=== PATIENT | male | born 1940 | race Caucasian/White ===

== ENCOUNTER 2016-09-24 14:58 | Inpatient (IN) | payer MEDICARE, BC ==
[2016-09-24] MEDS ORDERED: Albuterol/Ipratropium Neb 3 ML NEB NEB ONE (15:15)
[2016-09-24] MEDS ORDERED: METHYLPREDNISOLONE 125 MG/2 ML VIAL IV ONE (15:15)
--- NOTE | 2016-09-24 15:17 | EDPRACDOC ---
[id number] Information Source: Reserves Clerk Mode Of Arrival: Ambulance Home Medications: Home Medications Fluticasone/Salmeterol [Advair 500-50 Diskus] 1 puff INH DAILY 11/22/14 Montelukast Sodium [Singulair] 10 mg PO HS 11/22/14 Nebulizer [Erapid Nebulizer] 1 each MC UNK 11/22/14 Tiotropium [Spiriva Handihaler] 1 puff INH DAILY 11/22/14 Albuterol Sulfate [Proair Hfa] 2 puff INH QID PRN 06/19/15 Rivaroxaban [Xarelto] 20 mg PO .QPM 06/19/15 Diltiazem HCl [Cardizem Cd] 120 mg PO DAILY #30 cap 06/21/15 Alprazolam [Xanax] 0.5 mg PO TID PRN 12/27/15 Cholecalciferol (Vitamin D3) [Vitamin D3] 1,000 unit PO DAILY 12/27/15 Docusate Sodium [Stool Softener] 100 mg PO DAILY PRN 12/27/15 Dronedarone Hydrochloride [Multaq] 400 mg PO BID 12/27/15 Omeprazole [Prilosec] 20 mg PO BID 12/27/15 Albuterol/Ipratropium Neb [Duoneb] 3 ml NEB Q6H #120 nebu 01/04/16 Furosemide [Lasix] 40 mg PO BID #120 tab 01/04/16 Guaifenesin [Humabid, Mucinex] 600 mg PO BID #60 tab 01/04/16 Potassium Chloride 20 meq PO DAILY #60 tablet.er 01/04/16 Prednisone [Deltasone, Orasone] 60 mg PO DAILY 09/24/16 Allergies/Adverse Reactions: Allergies Allergy/AdvReac Type Severity Reaction Status Date / Time Penicillins Allergy Intermediate Rash-Genera Verified 09/24/16 16:20 lized - History of Present Illness Onset: FEW DAYS HPI: PT HAS BEEN SOB FOR THE PAST FEW DAYS. THE PT IS UNABLE TO GIVE ANY HX DUE TO THE SEVERE SOB. THE PT CALLED EMS TODAY. EMS PUT PT ON BIPAP EN ROUTE DUE TO THE SEVERE SOB. Shortness of Breath: Severe Relevant History: Reports: COPD Cough: Reports: Non-productive Rhinorrhea: Reports: None Ear Symptoms: Reports: None SOB Worsens with: Reports: Exertion SOB Improves with: Reports: Nothing ED Past Medical History - Patient Medical History Cardiac History: Reports: Atrial Fibrillation, Hypertension, Congestive Heart Failure, Valvular Heart Disease Respiratory History: Reports: COPD, Pneumonia, Pulmonary Embolism GI/ History: Reports: Renal Disease, Gastroesophageal Reflux Musculoskeletal History: Reports: Osteoarthritis Psychological History: Reports: Anxiety. Denies: Substance Use Disorder Surgical History: Reports: Hernia Surgery, Other (hip orif) - Family Medical History Reports: Cancer (lung), Cardiac Disorders - Social Medical History Smoking Status: Never smoker Social History: Denies: Substance Use Disorder ETOH: None Substance Abuse: None Lives In: Home EDM Review of Systems - Review of Systems ROS Negative Except as Marked: Yes All systems reviewed and were negative except as marked Respiratory: Shortness of Breath - Physical Exam Constitutional: Distress Oriented to: Time, Person, Place Last recorded Vital Signs: Oxygen Pulse Oxygen Saturation O2 Device Oxygen Flow Rate Fraction of Inspired Oxygen ( FIO2) - HEENT Head: Normal ( normocephalic) Eye Exam: Normal (PERRL, EOMI, Sclera white) Oropharynx: Normal (Pharynx:Moist without exudate,Gums-no swelling) ENT EAC: Normal TMJ: Normal Nose: No Symptoms Reported (septum midline) Neck: Normal (FROM, trachea at midline) - Respiratory/Cardiovascular Respiratory: Rhonchi, Tachypnea Cardiovascular: Tachycardia, Irregular - GI Auscultation: Normal (NABS) Palpation: Normal (Soft,No rebound or guarding, non distended) Tenderness: Non tender Clarke's Sign: Negative - Musculoskeletal Back: Normal (Non-Tender) Extremities: Normal (Normal tone, Pulses 2+ No cyanosis or edema, FROM) - Integumentary Skin: Normal, Warm, Dry Lymphatics: Normal (no adenopathy) - Neurologic Memory Impaired: Normal Motor Function: Normal (Normal tone, Pulses 2+ No cyanosis or edema, FROM) Cranial Nerve: Normal (CN II-X11 intact sensation, strength 5/5) Cerebellar: Normal Mood Description: Normal Perception: Normal ED SOB MDM - Re-evaluation Re-evaluation 1 Re-evaluation Time: 16:00 (IMPROVED, BUT STILL SOB) - Results Result Diagrams: 09/24/16 15:10 09/24/16 15:10 - EKG EKG #1 EKG Time: 15:06 -: Yes EKG interpreted by me Rate: bpm: [address] [place]: Normal Rhythm: Afib Block: None Hypertrophy: None ST: Normal Comparison: 09/24/16 - Diagnostic Imaging Chest Image interpreted by: Radiologist Diagnostic Imaging Comments: No active disease. ED Critical Care Note - Critical Care Note Total Time (mins): 30 - Departure Yes I personally saw and evaluated the patient. Disposition: Admit IP To This Hospital Condition: Serious Final Diagnosis: Hyperglycemia, Acute respiratory failure with hypoxia, CKD (chronic kidney disease) Atrial fibrillation Qualifiers: Atrial fibrillation type: chronic Qualified Code(s): I48.2 - Chronic atrial fibrillation Education/Counseling Given To: Patient Education/Counseling Given Regarding: Diagnosis, Treatment Decision to Admit Time: 16:02 Decision to admit date: 09/24/16 Decision to admit: from ED - Physician Consulted Hospitalist Provider Called: Garrick Quinones
[2016-09-24 15:28] LABS: MPV 7.6 fL (7.4-10.4)
--- NOTE | 2016-09-24 15:32 | DIRPT ---
CLINICAL DATA: Shortness of breath, COPD EXAM: PORTABLE CHEST 1 VIEW COMPARISON: 01/03/2016 FINDINGS: The lungs are hyperinflated likely secondary to COPD. There is hazy left lower lobe airspace disease similar to the prior exam likely reflecting scarring. There is no pleural effusion or pneumothorax. The heart and mediastinal contours are unremarkable. The osseous structures are unremarkable. IMPRESSION: No active disease. Electronically Signed By: Sia Mcarthur On: 09/24/2016 15:29
[2016-09-24 15:41] LABS: PARTIAL THROMB. TIME 27.1 SEC (22-35); PT-INR 1.4
[2016-09-24 15:42] LABS: BLOOD UREA NITROGEN 29 MG/DL (9-20); CALC CORRECTED 8.9 MG/DL (8.4-10.2); CALCIUM 8.6 MG/DL (8.4-10.2); CALCULATED OSMOLALITY 282 MOs/Kg (270-290); CHLORIDE 92 mEq/L (98-107); GLUCOSE 387 MG/DL (70-99); SODIUM LEVEL 135 mEq/L (137-146); TOTAL PROTEIN 6.7 G/DL (6.3-8.2)
[2016-09-24 15:43] LABS: SEG NEUTROPHIL 87 % (45-76)
[2016-09-24] MEDS ORDERED: Levofloxacin 750 mg/150 ml D5W 750 MG/150 ML RTU IV ONE (15:58)
[2016-09-24] MEDS ORDERED: REGULAR INSULIN 100 UNITS/ML - 3 ML VIAL IV ONE (16:00)
[2016-09-24 16:01] LABS: ALLEN'S TEST PASS; BEb 5.2 (+/- 2); TCO2 33.1 MMOL/L (23-27)
[2016-09-24 16:02] LABS: ABG Draw Site Left Radial
[2016-09-24] MEDS ORDERED: DILTIAZEM 25 MG/5 ML VIAL IV ONE (16:10)
[2016-09-24 16:13] LABS: LEUKOCYTES/URINE NEG (NEGATIVE); NITRITE/URINE NEG (NEGATIVE); RBC/URINE 0-2 (0-2); URINE OCCULT BLOOD NEG (NEG/TRACE)
[2016-09-24] MEDS ORDERED: GLUCAGON 1 MG VIAL SQ PRN (16:43)
[2016-09-24] MEDS ORDERED: Albuterol/Ipratropium Neb 3 ML NEB NEB PRN (16:43)
[2016-09-24] MEDS ORDERED: DEXTROSE 25 GM/50 ML PFS IV PRN (16:43)
[2016-09-24] MEDS ORDERED: GLUCOSE (ORAL GEL) 15 GM TUBE PO PRN (16:43)
[2016-09-24] MEDS ORDERED: Non-Formulary Medication ITEM (Nebulizer [Erapid Nebulizer] 1 EACH) MC SCH (17:00)
--- NOTE | 2016-09-24 17:00 | HISTPHYS ---
- Chief Complaint Shortness of breath cough phlegm production. - History of Present Illness 75 yowm presented to emergency room early on today for evaluation of worsening difficulties breathing. reports that about 10 days ago patient developed chest congestion and cough productive of foamy sputum. Over the ensuing period of time patient breathing has progressively worsened. Patient been coughing producing fair amount of thick yellowish greenish sputum. No hemoptysis. Patient reports chest tightness and profuse wheezing. Despite increasing his oxygen to 4 L and using his nebulizers with increased frequency patient did not sustain any symptomatic improvement. Over past couple days his p.o. intake has been negligent, he has been feel weak tired and very fatigued. Since yesterday his dyspnea has significantly worsened and early on today has found him gasping for air, cold clammy cyanotic and 911 was activated. Upon arrival in ED patient was found to be in severe respiratory distress hypoxic tachypneic and tachycardic. He required immediate ED staff attention, treatment with BiPAP was instituted, intubation was avoided. Medical consultation was phoned in for inpatient treatment. - Medical History Cardiac History: Reports: Coronary Artery Disease, Atrial Fibrillation, Hypertension, Congestive Heart Failure, Heart Attack, Cardiomyopathy, Valvular Heart Disease Respiratory History: Reports: COPD, Pneumonia, Emphysema, Pulmonary Embolism GI/ History: Reports: Renal Disease, Gastroesophageal Reflux, BPH Musculoskeletal History: Reports: Osteoarthritis Systemic History: Reports: No Significant History Neurological History: Reports: No Significant History Psychological History: Reports: Depression, Anxiety. Denies: Substance Use Disorder - Surgical History Reports: Hernia Surgery, Other (hip orif) - Medictions/Allergies Allergies Penicillins Allergy (Intermediate, Verified 09/24/16 16:20) Rash-Generalized Current Medication List: Reviewed Home Medications Fluticasone/Salmeterol [Advair 500-50 Diskus] 1 puff INH DAILY 11/22/14 Montelukast Sodium [Singulair] 10 mg PO HS 11/22/14 Nebulizer [Erapid Nebulizer] 1 each MC UNK 11/22/14 Tiotropium [Spiriva Handihaler] 1 puff INH DAILY 11/22/14 Albuterol Sulfate [Proair Hfa] 2 puff INH QID PRN 06/19/15 Rivaroxaban [Xarelto] 20 mg PO .QPM 10/19/15 Diltiazem HCl [Cardizem Cd] 120 mg PO DAILY #30 cap 06/21/15 Alprazolam [Xanax] 0.5 mg PO TID PRN 12/27/15 Cholecalciferol (Vitamin D3) [Vitamin D3] 1,000 unit PO DAILY 12/27/15 Docusate Sodium [Stool Softener] 100 mg PO DAILY PRN 12/27/15 Dronedarone Hydrochloride [Multaq] 400 mg PO BID 12/27/15 Omeprazole [Prilosec] 20 mg PO BID 12/27/15 Albuterol/Ipratropium Neb [Duoneb] 3 ml NEB Q6H #120 nebu 01/04/16 Furosemide [Lasix] 40 mg PO BID #120 tab 01/04/16 Guaifenesin [Humabid, Mucinex] 600 mg PO BID #60 tab 01/04/16 Potassium Chloride 20 meq PO DAILY #60 tablet.er 01/04/16 Prednisone [Deltasone, Orasone] 60 mg PO DAILY 09/24/16 - Family History Reports: Cancer (lung), Cardiac Disorders, Other (Father due to lung cancer , monitor to heart trouble) - Social History Travel Outside of [place] in the Last 3 Months?: No Lives: With Family Smoking Status: Former smoker Social History: Denies: Substance Use Disorder - Review of Systems Constitutional: Chills, Fever, Diaphoresis, Fatigue, Loss of Appetite, Weakness , Weight loss Eyes: No Symptoms Reported Ears: No Symptoms Reported Nose: No Symptoms Reported Mouth: No Symptoms Reported Throat/Neck: No Symptoms Reported Respiratory: Cough, Shortness of Breath, Wheezing, Sputum, Dyspnea Cardiovascular: Cyanosis, Palpitations Gastrointestinal: Nausea, Constipation, Heartburn Genitourinary: Nocturia Neurological: Dizziness, Numbness, Weakness Musculoskeletal:: Arthritis Integumentary: No Symptoms Reported Allergic/Immunologic: No Symptoms Reported Hematologic: No Symptoms Reported Endocrine: No Symptoms Reported Psychiatric: No Symptoms Reported - Physical Exam Vital Signs: Initial Vitals Temperature 97.5 F 09/24/16 15:00 Pulse Rate 126 H 09/24/16 15:00 Respiratory Rate 28 H 09/24/16 15:00 Blood Pressure 174/91 09/24/16 15:00 Pulse Oxygen Saturation 81 L 09/24/16 15:00 Constitutional: Alert, Distress, Restless, Other (Patient in bed on BiPAP. Still visibly short of breath with audible rhonchi some wheezes.) Oriented to: Person - HEENT Head: Normal Eye: Normal Oropharynx: Normal ENT EAC: Normal TMJ: Normal Nose: No Symptoms Reported Respiratory: Accessory Muscle Use, Diminished, Rales, Retractions, Rhonchi, Tachypnea, Wheezes Cardiovascular: Normal, Tachycardia, Systolic murmur - GI Auscultation: Normal Palpation: Normal Tenderness: Non tender Rectal Exam: Deferred - Exam Deferred: Yes - Musculoskeletal Back: Normal Extremities: Cyanosis, Edema Spine: non-tender - Integumentary Skin: Normal, Warm, Dry Lymphatics: Normal - Neurologic Memory Impaired: Normal Motor Function: Abnormal Cranial Nerve: Normal Cerebellar: Ataxia Mood Description: Anxious Thought: Coherent Perception: Normal - Focused CV Perfusion Exam Vital Signs: Last Vital Signs Temp 97.5 F 09/24/16 15:00 Pulse 100 09/24/16 15:30 Resp 33 H 09/24/16 16:07 BP 143/82 09/24/16 15:30 Pulse Ox 93 09/24/16 16:07 - Diagnostic Findings Allergies Penicillins Allergy (Intermediate, Verified 09/24/16 16:20) Rash-Generalized 09/24/16 15:10 09/24/16 15:10 Abnormal Lab Results 09/24/16 09/24/16 09/24/16 15:10 15:10 15:10 WBC 21.4 H RBC 4.05 L Hgb 12.0 L Hct 36.9 L MCHC 32.6 L RDW 14.8 H Seg Neuts % (Manual) 87 H Band Neutrophils % 9 H Lymphocytes % (Manual) 4 L Absolute Neutrophils 20.54 H PT pCO2 pO2 HCO3 Total CO2 Base Excess Sodium 135 L Chloride 92 L Anion Gap 18 H BUN 29 H Glucose 387 H Lactic Acid 3.7 H Lkj-X-Owaokcqvxll Pept 3770 H Urine Protein Urine WBC Hyaline Casts 09/24/16 09/24/16 09/24/16 15:10 15:55 16:00 WBC RBC Hgb Hct MCHC RDW Seg Neuts % (Manual) Band Neutrophils % Lymphocytes % (Manual) Absolute Neutrophils PT 14.7 H pCO2 52.0 H pO2 133.0 H HCO3 31.5 H Total CO2 33.1 H Base Excess 5.2 H Sodium Chloride Anion Gap BUN Glucose Lactic Acid Ucg-I-Jtnujvzsyab Pept Urine Protein 1+ H Urine WBC 2-5 H Hyaline Casts 10-20 H Last Vital Signs Temp 97.5 F 09/24/16 15:00 Pulse 100 09/24/16 15:30 Resp 33 H 09/24/16 16:07 BP 143/82 09/24/16 15:30 Pulse Ox 93 09/24/16 16:07 Patient Name: JAY WRIGHT LOC: ED : 1940 AGE: 75 Order Date:09/24/16 Date of Service: Report # [id number] Ord Physician: Minnie Lomax MD Exam # [id number] Emergency Physician: Minnie Lomax MD Exam(s): [id number] RAD/DG CHEST PORTABLE CLINICAL DATA: Shortness of breath, COPD EXAM: PORTABLE CHEST 1 VIEW COMPARISON: 01/03/2016 FINDINGS: The lungs are hyperinflated likely secondary to COPD. There is hazy left lower lobe airspace disease similar to the prior exam likely reflecting scarring. There is no pleural effusion or pneumothorax. The heart and mediastinal contours are unremarkable. The osseous structures are unremarkable. IMPRESSION: No active disease. Electronically Signed By: Sia Mcarthur On: 09/24/2016 15:29 Electronically Signed By: Sia Mcarthur MD Electronically Signed Date/Time: [id number] Dictate Date/Time: 09/24/16 1526 - Assessment (1) Acute respiratory failure with hypoxia J96.01 - ACUTE RESPIRATORY FAILURE WITH HYPOXIA Acute Present on Admission: Yes Patient will be admitted to ICU. Continue BiPAP therapy. Patient himself and his were advised that he may require ventilatory support. Monitor pulmonary status closely will obtain PA and lateral chest x-ray and ABG in the morning. (2) Bacterial pneumonia J15.9 - UNSPECIFIED BACTERIAL PNEUMONIA Acute Present on Admission: Yes Patient will receive broad-spectrum antibiotics in the form of Levaquin and Rocephin. Adjust antibiotics based on culture results. (3) Sepsis A41.9 - SEPSIS, UNSPECIFIED ORGANISM Acute Present on Admission: Yes Qualifiers: Sepsis type: sepsis due to unspecified organism Qualified Code(s): A41.9 - Sepsis, unspecified organism Continue IV antibiotics and IV steroids monitor cultures. Monitor hemodynamics in ICU setting. (4) COPD exacerbation J44.1 - CHRONIC OBSTRUCTIVE PULMONARY DISEASE W (ACUTE) EXACERBATION Acute Present on Admission: Yes Continue nebulized bronchodilators and IV steroids. Continue mucolytics and aggressive pulmonary toileting. (5) Cardiomyopathy I42.9 - CARDIOMYOPATHY, UNSPECIFIED Acute Present on Admission: Yes Qualifiers: Cardiomyopathy type: unspecified Qualified Code(s): I42.9 - Cardiomyopathy , unspecified Continue salt restriction, monitor weight and fluid balance. Change Lasix to IV. Monitor BnP (6) Afib I48.91 - UNSPECIFIED ATRIAL FIBRILLATION Chronic Present on Admission: Yes Qualifiers: Atrial fibrillation type: chronic Qualified Code(s): I48.2 - Chronic atrial fibrillation Rate controlled on Cardizem and Multaq. Continue anticoagulation (7) GERD (gastroesophageal reflux disease) K21.9 - GASTRO-ESOPHAGEAL REFLUX DISEASE WITHOUT ESOPHAGITIS Chronic Qualifiers: Esophagitis presence: without esophagitis Qualified Code(s): K21.9 - Gastro -esophageal reflux disease without esophagitis Continue with PPI. (8) HTN (hypertension) I10 - ESSENTIAL (PRIMARY) HYPERTENSION Chronic Present on Admission: Yes Qualifiers: Hypertension type: essential hypertension Qualified Code(s): I10 - Essential (primary) hypertension Continue home meds keep SBP around 140.. (9) Anemia D64.9 - ANEMIA, UNSPECIFIED Acute Qualifiers: Anemia type: unspecified type Iron deficiency anemia type: I Vitamin B12 deficiency anemia type: V Folate deficiency anemia type: F Bone marrow failure anemia type: B Hemolytic anemia type: H Other causes of anemia: O Qualified Code(s): D64.9 - Anemia, unspecified Monitor counts - Plan Clinical situation and treatment plan was discussed in details with patient and his at the bedside. Patient was advised that this appears critically ill, in danger of dying and may required ventilatory support. Case Care Discussed with: Patient, Consultants, Family, Nursing Staff, Respiratory Therapy Total Time: 92 min . Critical Care: Yes Code: 292
[2016-09-24] MEDS ORDERED: MORPHINE 10 MG/ML INJECTION NEB PRN (17:03)
[2016-09-24] MEDS ORDERED: MORPHINE 10 MG/ML INJECTION ONE (17:10)
[2016-09-24] MEDS ORDERED: FLUTICASONE/SALMETEROL 500/50 DISKUS INH SCH (18:00)
[2016-09-24] MEDS: REGULAR INSULIN 100 UNITS/ML - 3 ML VIAL SQ SCH (18:24)
[2016-09-24] MEDS: NS 1,000 ML IV SCH (18:24)
[2016-09-24] MEDS: CEFTRIAXONE 1 GM in D5W 100 ML IV SCH (18:24)
[2016-09-24] MEDS: Albuterol/Ipratropium Neb 3 ML NEB NEB SCH (19:54)
[2016-09-24] MEDS ORDERED: ENOXAPARIN 40 MG/0.4 ML PFS SQ SCH (21:00)
[2016-09-24] MEDS ORDERED: RIVAROXABAN 10 MG TAB PO SCH (21:00)
[2016-09-24] MEDS: LORAZEPAM 2 MG/ML VIAL IV PRN (22:01)
[2016-09-24] MEDS: MORPHINE 2 MG/ML INJECTION IV PRN (22:02)
[2016-09-24] MEDS: CHLORHEXIDINE (HIBICLENS) 4 OZ BOTTLE TOP SCH (22:03)
[2016-09-24] MEDS: DRONEDARONE 400 MG TAB PO SCH (22:04)
[2016-09-24] MEDS: GUAIFENESIN 600 MG LA TAB PO SCH (22:04)
[2016-09-24] MEDS: MONTELUKAST SODIUM 10 MG TAB PO SCH (22:04)
[2016-09-24] MEDS: FUROSEMIDE 40 MG/4 ML VIAL IV SCH (22:05)
[2016-09-24] MEDS: METHYLPREDNISOLONE 125 MG/2 ML VIAL IV SCH (22:05)
[2016-09-25] MEDS ORDERED: Vaccine Screening Complete SCH (01:00)
[2016-09-25] MEDS: REGULAR INSULIN 100 UNITS/ML - 3 ML VIAL SQ SCH ×5 (01:06→23:38)
[2016-09-25] MEDS: Albuterol/Ipratropium Neb 3 ML NEB NEB SCH ×4 (02:31→19:37)
[2016-09-25] MEDS: METHYLPREDNISOLONE 125 MG/2 ML VIAL IV SCH ×4 (04:25→20:44)
[2016-09-25 04:31] LABS: ALLEN'S TEST PASS; BEb 10.9 (+/- 2); TCO2 37.2 MMOL/L (23-27)
[2016-09-25 04:32] LABS: ABG Draw Site Left Radial; ABG Draw Tech BKL
[2016-09-25 04:33] LABS: BI-PAP 14/8 RATE 10 cm H2O
[2016-09-25 05:54] LABS: MPV 7.7 fL (7.4-10.4)
[2016-09-25 06:06] LABS: BLOOD UREA NITROGEN 27 MG/DL (9-20); CALCIUM 8.3 MG/DL (8.4-10.2); CALCULATED OSMOLALITY 271 MOs/Kg (270-290); CHLORIDE 95 mEq/L (98-107); GLUCOSE 136 MG/DL (70-99); SODIUM LEVEL 137 mEq/L (137-146)
[2016-09-25 06:14] LABS: SEG NEUTROPHIL 91 % (45-76)
[2016-09-25] MEDS: FUROSEMIDE 40 MG/4 ML VIAL IV SCH ×3 (06:38→16:07)
[2016-09-25] MEDS: PANTOPRAZOLE 40 MG TAB PO SCH (06:40)
--- NOTE | 2016-09-25 07:44 | DIRPT ---
CLINICAL DATA: Respiratory distress EXAM: PORTABLE CHEST 1 VIEW COMPARISON: Portable chest x-ray of September 24, 2016 FINDINGS: The lungs are mildly hyperinflated. There is persistent subsegmental atelectasis at the left lung base. The heart is normal in size. The pulmonary vascularity is less prominent today. The mediastinum is normal in width. The bony thorax is unremarkable. IMPRESSION: COPD. Minimal left basilar atelectasis or scarring, stable. Decreased prominence of the pulmonary vascularity. When the patient can tolerate the procedure, a PA and lateral chest x-ray would be useful. Electronically Signed By: Colin Kasper M.D. On: 09/25/2016 07:41
--- NOTE | 2016-09-25 08:02 | GENMEDPROG ---
Subjective Note: Patient in bed, responsive follows commands. Required continues BiPAP since admission. Still visibly short of breath with audible wheezes, coughing producing fair amount thick sputum. Patient stays that overall breathing somewhat improved since admission. In negative fluid balance. Notes Reviewed: Yes Events from last night noted and discussed with Clinical Staff Current Medication List: Reviewed Currently: Reports: Cough, Wheezing, CARTWRIGHT, SOB, Sputum, Reflux Sx DVT Prophylaxis: Yes - Physical Examination Vital Signs and I&O: Last Vital Signs Temp 97.4 F L 09/25/16 07:00 Pulse 91 09/25/16 07:00 Resp 22 09/25/16 07:00 BP 138/77 09/25/16 07:00 Pulse Ox 98 09/25/16 07:00 Oxygen Pulse Oxygen Saturation 98 O2 Device BiPAP Oxygen Flow Rate Fraction of Inspired Oxygen ( 40 FIO2) Intake & Output 09/22/16 09/23/16 09/24/16 09/25/16 23:59 23:59 23:59 23:59 Intake Total 101 331 Output Total 250 Balance 101 81 Patient's weight 72.303 kg 72.665 kg General: Alert, Oriented x3, Cooperative, Mild distress HEENT: Normal, PERRLA, EOMI, Anicteric Sclera Neck: Non-tender, Normal Trachea alignment, Limited range of motion, JVD Lymphatics: Normal (no adenopathy) Respiratory: Diminished, Rhonchi, Tachypnea, Wheezes Cardiovascular: Regular rate, Normal S1, Normal S2, Murmurs, Irregular GI: Normal bowel sounds, Soft, Non tender, No hepatospenomegaly, No masses Extremities/Musculoskeletal: Edema, Cyanosis, DJD Skin: Warm,Dry and Intact, No rashes, No breakdown, No significant lesion Neurological: Normal speech, Cranial nerves 3-12 NL Psych/Mental Status: Anxious Lab/DI/Studies Reviewed: Allergies Penicillins Allergy (Intermediate, Verified 09/24/16 16:20) Rash-Generalized Last Vital Signs Temp 97.4 F L 09/25/16 07:00 Pulse 91 09/25/16 07:00 Resp 22 09/25/16 07:00 BP 138/77 09/25/16 07:00 Pulse Ox 97 09/25/16 07:56 09/25/16 05:10 09/25/16 05:10 Abnormal Lab Results 09/24/16 09/24/16 09/24/16 15:10 15:10 15:10 WBC 21.4 H RBC 4.05 L Hgb 12.0 L Hct 36.9 L MCHC 32.6 L RDW 14.8 H Seg Neuts % (Manual) 87 H Band Neutrophils % 9 H Lymphocytes % (Manual) 4 L Absolute Neutrophils 20.54 H Absolute Lymphocytes PT pH pCO2 pO2 HCO3 Total CO2 Base Excess Sodium 135 L Chloride 92 L Anion Gap 18 H BUN 29 H Glucose 387 H POC Capillary Glucose Lactic Acid 3.7 H Calcium Ykk-X-Cedxkqfqrif Pept 3770 H Urine Protein Urine WBC Hyaline Casts 09/24/16 09/24/16 09/24/16 15:10 15:55 16:00 WBC RBC Hgb Hct MCHC RDW Seg Neuts % (Manual) Band Neutrophils % Lymphocytes % (Manual) Absolute Neutrophils Absolute Lymphocytes PT 14.7 H pH pCO2 52.0 H pO2 133.0 H HCO3 31.5 H Total CO2 33.1 H Base Excess 5.2 H Sodium Chloride Anion Gap BUN Glucose POC Capillary Glucose Lactic Acid Calcium Dep-W-Rzzpgzooeiq Pept Urine Protein 1+ H Urine WBC 2-5 H Hyaline Casts 10-20 H 09/24/16 09/24/16 09/24/16 18:15 18:21 21:32 WBC RBC Hgb Hct MCHC RDW Seg Neuts % (Manual) Band Neutrophils % Lymphocytes % (Manual) Absolute Neutrophils Absolute Lymphocytes PT pH pCO2 pO2 HCO3 Total CO2 Base Excess Sodium Chloride Anion Gap BUN Glucose POC Capillary Glucose 162 H 178 H Lactic Acid 3.5 H Calcium Btg-W-Gfhbcfusnug Pept Urine Protein Urine WBC Hyaline Casts 09/25/16 09/25/16 09/25/16 01:02 04:25 05:08 WBC RBC Hgb Hct MCHC RDW Seg Neuts % (Manual) Band Neutrophils % Lymphocytes % (Manual) Absolute Neutrophils Absolute Lymphocytes PT pH 7.490 H pCO2 47.0 H pO2 148.0 H HCO3 35.8 H Total CO2 37.2 H Base Excess 10.9 H Sodium Chloride Anion Gap BUN Glucose POC Capillary Glucose 182 H 143 H Lactic Acid Calcium Icy-V-Rjswlhbvltn Pept Urine Protein Urine WBC Hyaline Casts 09/25/16 09/25/16 05:10 05:10 WBC 11.5 H RBC 3.48 L Hgb 10.4 L D Hct 31.2 L MCHC RDW Seg Neuts % (Manual) 91 H Band Neutrophils % Lymphocytes % (Manual) 5 L Absolute Neutrophils 10.70 H Absolute Lymphocytes 0.58 L PT pH pCO2 pO2 HCO3 Total CO2 Base Excess Sodium Chloride 95 L Anion Gap BUN 27 H Glucose 136 H POC Capillary Glucose Lactic Acid Calcium 8.3 L Jun-T-Ofqivxhikzf Pept Urine Protein Urine WBC Hyaline Casts Patient Name: JAY WRIGHT LOC: ICU : 1940 AGE: 75 Order Date:09/24/16 Date of Service: Report # [id number] Ord Physician: Ulises Okeefe MD Exam # [id number] Emergency Physician: Minnie Lomax MD Exam(s): [id number] RAD/DG CHEST PORTABLE CLINICAL DATA: Respiratory distress EXAM: PORTABLE CHEST 1 VIEW COMPARISON: Portable chest x-ray of September 24, 2016 FINDINGS: The lungs are mildly hyperinflated. There is persistent subsegmental atelectasis at the left lung base. The heart is normal in size. The pulmonary vascularity is less prominent today. The mediastinum is normal in width. The bony thorax is unremarkable. IMPRESSION: COPD. Minimal left basilar atelectasis or scarring, stable. Decreased prominence of the pulmonary vascularity. When the patient can tolerate the procedure, a PA and lateral chest x-ray would be useful. Electronically Signed By: Colin Kasper M.D. On: 09/25/2016 07:41 Electronically Signed By: Colin Kasper MD - Assessment (1) Acute respiratory failure with hypoxia Acute J96.01 - ACUTE RESPIRATORY FAILURE WITH HYPOXIA Comment/Plan: Continue supplemental O2, continue BiPAP therapy. Monitor pulmonary status. (2) Bacterial pneumonia Acute J15.9 - UNSPECIFIED BACTERIAL PNEUMONIA Comment/Plan: Continue IV antibiotics in the form Rocephin Levaquin , await cultures. (3) Sepsis Acute A41.9 - SEPSIS, UNSPECIFIED ORGANISM Qualifiers: Sepsis type: sepsis due to unspecified organism Qualified Code(s): A41.9 - Sepsis, unspecified organism Comment/Plan: Continue IV antibiotics and IV steroids monitor cultures. Monitor hemodynamics in ICU setting. (4) COPD exacerbation Acute J44.1 - CHRONIC OBSTRUCTIVE PULMONARY DISEASE W (ACUTE) EXACERBATION Comment/Plan: Continue nebulized bronchodilators and IV steroids. Continue mucolytics and aggressive pulmonary toileting. Wean off IV steroids gradually (5) Cardiomyopathy Acute I42.9 - CARDIOMYOPATHY, UNSPECIFIED Qualifiers: Cardiomyopathy type: unspecified Qualified Code(s): I42.9 - Cardiomyopathy , unspecified Comment/Plan: Continue salt restriction, monitor weight and fluid balance. Patient responded very well to IV diuretic. (6) Afib Chronic I48.91 - UNSPECIFIED ATRIAL FIBRILLATION Qualifiers: Atrial fibrillation type: chronic Qualified Code(s): I48.2 - Chronic atrial fibrillation Comment/Plan: Rate controlled on Cardizem and Multaq. Continue anticoagulation (7) GERD (gastroesophageal reflux disease) Chronic K21.9 - GASTRO-ESOPHAGEAL REFLUX DISEASE WITHOUT ESOPHAGITIS Qualifiers: Esophagitis presence: without esophagitis Qualified Code(s): K21.9 - Gastro -esophageal reflux disease without esophagitis Comment/Plan: Continue with PPI. (8) HTN (hypertension) Chronic I10 - ESSENTIAL (PRIMARY) HYPERTENSION Qualifiers: Hypertension type: essential hypertension Qualified Code(s): I10 - Essential (primary) hypertension Comment/Plan: Continue home meds keep SBP around 140.. (9) Anemia Acute D64.9 - ANEMIA, UNSPECIFIED Qualifiers: Anemia type: unspecified type Iron deficiency anemia type: I Vitamin B12 deficiency anemia type: V Folate deficiency anemia type: F Bone marrow failure anemia type: B Hemolytic anemia type: H Other causes of anemia: O Qualified Code(s): D64.9 - Anemia, unspecified Comment/Plan: Monitor counts Case Care Discussed with: Patient, Consultants, Family, Nursing Staff, [employer] Developer Education/Counseling Given To: Patient Education/Counseling Given Regarding: Diagnosis, Treatment, Prognosis, Follow Up Total Time: 45 min . Critical Care: Yes Code: 291
[2016-09-25] MEDS: DILTIAZEM HCL 120 MG CAPSULE.CR PO SCH (08:39)
[2016-09-25] MEDS: GUAIFENESIN 600 MG LA TAB PO SCH ×2 (08:39→20:43)
[2016-09-25] MEDS: POTASSIUM CHLORIDE 20 MEQ TAB PO SCH (08:39)
[2016-09-25] MEDS: DRONEDARONE 400 MG TAB PO SCH ×2 (08:39→20:44)
[2016-09-25] MEDS ORDERED: TIOTROPIUM INH SCH (09:00)
[2016-09-25] MEDS ORDERED: MUPIROCIN 2% OINT 22 GM TUBE NAS SCH (09:00)
[2016-09-25] MEDS: FLUTICASONE/SALMETEROL 500/50 DISKUS INH SCH ×2 (09:12→19:42)
--- NOTE | 2016-09-25 10:08 | PCM.PULM ---
Chief Complaint: Respiratory failure acute on Chronic with hypoxia COPD exacerbation Pneumonia Atrial fibrillation GERD Patient in Intensive care unit bed alert and responsive follows commands. Breathing is short has been on BIPAP over night and prn Current complaints: SOB,CARTWRIGHT,cough,wheeze,sputum. No chest pain reported Medication list reviewed:yes Notes reviewed:yes, Events from last night noted and discussed with Clinical Staff GI/DVT prophylaxis:yes - Physical Examination Vital Signs and I&O: Last Vital Signs Temp 97.4 F L 09/25/16 07:00 Pulse 101 09/25/16 08:00 Resp 34 H 09/25/16 09:34 BP 133/86 09/25/16 08:00 Pulse Ox 92 09/25/16 09:34 Oxygen Pulse Oxygen Saturation 92 O2 Device Nasal Cannula Oxygen Flow Rate 3.5 Fraction of Inspired Oxygen ( 40 FIO2) Intake & Output 09/22/16 09/23/16 09/24/16 09/25/16 23:59 23:59 23:59 23:59 Intake Total 101 331 Output Total 250 Balance 101 81 Patient's weight 72.303 kg 72.665 kg General: Alert, Oriented x3, Cooperative, Mild distress, Well appearing, Well nourished, Obese, Weakness, Fatigue Respiratory: Diminished, Rhonchi, Wheezes Cardiovascular: Regular rate, Regular rate and rhythm, Normal S1, No Gallops, Rubs/Murmurs, Normal S2, Good Pedal Pulses GI: Normal bowel sounds, Soft, Non tender, No hepatospenomegaly, No masses Extremities/Musculoskeletal: Normal pulses Skin: Warm,Dry and Intact, No rashes, No breakdown, No significant lesion Neurological: Normal Steady Gait, Normal speech, Cranial nerves 3-12 NL Psych/Mental Status: Appropriate, Anxious Result Diagrams: 09/25/16 05:10 09/25/16 05:10 Labs (last 24 hours): Laboratory Results - last 24 hr 09/24/16 09/24/16 09/24/16 18:15 18:15 18:21 WBC RBC Hgb Hct MCV MCH MCHC RDW Plt Count MPV Neut % (Auto) Lymph % (Auto) [place] % (Auto) Eos % (Auto) Baso % (Auto) Absolute Neuts (auto) Absolute Lymphs (auto) Seg Neuts % (Manual) Band Neutrophils % Lymphocytes % (Manual) Monocytes % (Manual) Absolute Neutrophils Absolute Lymphocytes Platelet Estimate RBC Morphology Puncture Site pH pCO2 pO2 HCO3 Total CO2 Base Excess FiO2 % Mode BiPAP Specimen Drawn By Sodium Potassium Chloride Carbon Dioxide Anion Gap BUN Creatinine Estimated GFR (MDRD) Glucose POC Capillary Glucose 162 H Calculated Osmolality Lactic Acid 3.5 H Calcium Magnesium Troponin I 0.06 09/24/16 09/24/16 09/25/16 21:30 21:32 01:02 WBC RBC Hgb Hct MCV MCH MCHC RDW Plt Count MPV Neut % (Auto) Lymph % (Auto) [place] % (Auto) Eos % (Auto) Baso % (Auto) Absolute Neuts (auto) Absolute Lymphs (auto) Seg Neuts % (Manual) Band Neutrophils % Lymphocytes % (Manual) Monocytes % (Manual) Absolute Neutrophils Absolute Lymphocytes Platelet Estimate RBC Morphology Puncture Site pH pCO2 pO2 HCO3 Total CO2 Base Excess FiO2 % Mode BiPAP Specimen Drawn By Sodium Potassium Chloride Carbon Dioxide Anion Gap BUN Creatinine Estimated GFR (MDRD) Glucose POC Capillary Glucose 178 H 182 H Calculated Osmolality Lactic Acid Calcium Magnesium Troponin I 0.06 09/25/16 09/25/16 09/25/16 04:25 05:08 05:10 WBC RBC Hgb Hct MCV MCH MCHC RDW Plt Count MPV Neut % (Auto) Lymph % (Auto) [place] % (Auto) Eos % (Auto) Baso % (Auto) Absolute Neuts (auto) Absolute Lymphs (auto) Seg Neuts % (Manual) Band Neutrophils % Lymphocytes % (Manual) Monocytes % (Manual) Absolute Neutrophils Absolute Lymphocytes Platelet Estimate RBC Morphology Puncture Site Left radial pH 7.490 H pCO2 47.0 H pO2 148.0 H HCO3 35.8 H Total CO2 37.2 H Base Excess 10.9 H FiO2 % 40 Mode BiPAP 14/8 rate 10 Specimen Drawn By Bkl Sodium 137 Potassium 3.8 Chloride 95 L Carbon Dioxide 33 Anion Gap 13 BUN 27 H Creatinine 0.90 Estimated GFR (MDRD) > 60 Glucose 136 H POC Capillary Glucose 143 H Calculated Osmolality 271 Lactic Acid Calcium 8.3 L Magnesium 2.10 Troponin I 09/25/16 05:10 WBC 11.5 H RBC 3.48 L Hgb 10.4 L D Hct 31.2 L MCV 90 MCH 30.0 MCHC 33.4 RDW 14.5 Plt Count 172 MPV 7.7 Neut % (Auto) Cancelled Lymph % (Auto) Cancelled [place] % (Auto) Cancelled Eos % (Auto) Cancelled Baso % (Auto) Cancelled Absolute Neuts (auto) Cancelled Absolute Lymphs (auto) Cancelled Seg Neuts % (Manual) 91 H Band Neutrophils % 2 Lymphocytes % (Manual) 5 L Monocytes % (Manual) 2 Absolute Neutrophils 10.70 H Absolute Lymphocytes 0.58 L Platelet Estimate Norm RBC Morphology Norm Puncture Site pH pCO2 pO2 HCO3 Total CO2 Base Excess FiO2 % Mode BiPAP Specimen Drawn By Sodium Potassium Chloride Carbon Dioxide Anion Gap BUN Creatinine Estimated GFR (MDRD) Glucose POC Capillary Glucose Calculated Osmolality Lactic Acid Calcium Magnesium Troponin I Lab/DI/Studies Reviewed: EK:G NSR, NO ST or ST wave changes noted Cxray: 1 view COPD. Minimal left basilar atelectasis or scarring, stable. Decreased prominence of the pulmonary vascularity. When the patient can tolerate the procedure, a PA and lateral chest x-ray would be useful. Microbiology 09/24/16 18:05 Nares Nasal Screen MRSA (PCR)(RUDY) - Final POSITIVE for MRSA DNA Medications Diltiazem HCl (Cardizem Cd) 120 mg PO DAILY SHELBI Stop: 10/09/16 08:59 Last Admin: 09/25/16 08:39 Dose: 120 mg Albuterol/Ipratropium (Duoneb) 3 ml NEB Q2H PRN PRN Reason: Wheezing Stop: 10/08/16 16:59 Morphine Sulfate (Morphine Sulfate) 10 mg NEB RTQ8 PRN PRN Reason: Air Hunger Stop: 10/01/16 17:02 Potassium Chloride (Klor-Con M20) 40 meq PO DAILY SHELBI Stop: 10/09/16 08:59 Last Admin: 09/25/16 08:39 Dose: 40 meq Fluticasone/Salmeterol (Advair 500/50) 1 puff INH BID SHELBI Stop: 10/09/16 08:59 Last Admin: 09/25/16 09:12 Dose: 1 puff Sodium Chloride (Normal Saline) 1,000 mls @ 20 mls/hr IV Q48H [facility] Stop: 10/08/16 16:59 Last Admin: 09/24/16 18:24 Dose: Not Given Albuterol/Ipratropium (Duoneb) 3 ml NEB RTQ6 SHELBI Stop: 10/08/16 16:59 Last Admin: 09/25/16 09:11 Dose: 3 ml Alprazolam (Xanax) 0.5 mg PO TID PRN PRN Reason: Anxiety Stop: 10/08/16 16:52 Ceftriaxone Sodium 1 gm/ (Dextrose) 100 mls @ 200 mls/hr IV Q24H [facility] Stop: 10/01/16 17:59 Last Admin: 09/24/16 18:24 Dose: 200 mls/hr Furosemide (Lasix) 40 mg IV LASBID [facility] Stop: 10/09/16 16:59 Last Admin: 09/25/16 08:39 Dose: 40 mg Insulin Human Regular (Humulin R) 0 units SQ Q6 SHELBI PRN Reason: Protocol Stop: 10/08/16 16:59 Last Admin: 09/25/16 06:40 Dose: Not Given Levofloxacin/Dextrose (Levaquin 750 Mg) 750 mg in 150 mls @ 100 mls/hr IV Q24H [facility] Stop: 10/02/16 19:59 Lorazepam (Ativan) 1 mg IV Q4H PRN PRN Reason: Anxiety/Agitation Stop: 10/08/16 21:42 Last Admin: 09/24/16 22:01 Dose: 1 mg Methylprednisolone Sodium Succinate (Solu-Medrol) 80 mg IV Q6H [facility] Stop: 10/08/16 09:59 Last Admin: 09/25/16 08:38 Dose: 80 mg Montelukast Sodium (Singulair) 10 mg PO HS [facility] Stop: 10/08/16 20:59 Last Admin: 09/24/16 22:04 Dose: Not Given Morphine Sulfate (Morphine Sulfate) 3 mg IV Q2H PRN PRN Reason: Pain-NPO/PO Med Not Effective Stop: 10/01/16 16:59 Last Admin: 09/24/16 22:02 Dose: 3 mg Pantoprazole Sodium (Protonix) 40 mg PO 0600 [facility] Stop: 10/08/16 16:59 Last Admin: 09/25/16 06:40 Dose: Not Given Mupirocin (Bactroban) 1 gm IRWIN BID Stop: 09/25/16 09:30 Rivaroxaban (Xarelto) 20 mg PO 1800 [facility] Stop: 10/09/16 17:59 - Assessment/Plan (1) Acute respiratory failure with hypoxia Acute J96.01 - ACUTE RESPIRATORY FAILURE WITH HYPOXIA (2) COPD exacerbation Acute J44.1 - CHRONIC OBSTRUCTIVE PULMONARY DISEASE W (ACUTE) EXACERBATION (3) Sepsis Acute A41.9 - SEPSIS, UNSPECIFIED ORGANISM sepsis due to unspecified organism A41.9 - Sepsis, unspecified organism (4) Afib Chronic I48.91 - UNSPECIFIED ATRIAL FIBRILLATION chronic I48.2 - Chronic atrial fibrillation
[2016-09-25] MEDS: MUPIROCIN 2% OINT 22 GM TUBE NAS SCH ×2 (10:14→20:43)
[2016-09-25 11:15] LABS: LEUKOCYTES/URINE NEG (NEGATIVE); NITRITE/URINE NEG (NEGATIVE); RBC/URINE 0-2 (0-2); URINE OCCULT BLOOD NEG (NEG/TRACE)
[2016-09-25 11:49] LABS: AMORPHOUS 4+
[2016-09-25] MEDS: CHOLECALCIFEROL 1000 UNITS TAB PO SCH (12:15)
--- NOTE | 2016-09-25 17:20 | HIMCONS ---
DATE OF CONSULT: REQUESTING PHYSICIAN: Ulises Okeefe MD REASON FOR CONSULTATION: Respiratory failure. HISTORY OF PRESENT ILLNESS: This patient is a 75-year-old male, well known to me from previous office and hospital visits. The patient has not been feeling well for 10 days prior to his admission with coughing up whitish to yellowish phlegm which slowly got worse, complaining of tightness, wheezing, frequent use of nebulizers. Denies any hemoptysis, hematemesis, hematochezia, or melena. Denies any nausea, vomiting, diarrhea, or constipation. Dyspnea was worsening and eventually 911 was called. The patient was cold and clammy, was hypoxic, tachypneic, and tachycardic. The patient was placed on BiPAP and admitted to the ICU on antibiotics and has been feeling somewhat better; however, still remains on BiPAP. PAST MEDICAL HISTORY: Significant for coronary artery disease, atrial fibrillation, hypertension, congestive heart failure, history of MD, cardiomyopathy, valvular heart disease, history of COPD, history of PE, history of kidney disease with gastroesophageal reflux disease, benign prostatic hyperplasia, history of osteoarthritis, depression, anxiety. SURGICAL HISTORY: Significant for hernia surgery and hip surgery. Open reduction and internal fixation. ALLERGIES: THE PATIENT IS ALLERGIC TO PENICILLIN CAUSING RASH. MEDICATIONS: In the chart were noted. FAMILY HISTORY: Significant family history of having lung cancer and cardiac disorder mostly in his father. SOCIAL HISTORY: The patient has been a smoker in the past. No history of alcohol or drug abuse. Has been quit smoking for a while. REVIEW OF SYSTEMS: Detailed review of systems is negative except for as mentioned in the history of present illness. PHYSICAL EXAMINATION: VITAL SIGNS: Temperature is 98.6 degrees Fahrenheit, pulse is 107, respiratory rate is rate 28, blood pressure 152/75, pulse ox 93%. The patient is on 30% BiPAP, 14/7. CHEST: Diffuse bilateral wheezing with decreased bilateral air entry. HEART: S1, S2. Regular. The patient has systolic murmur. EXTREMITIES: No clubbing, cyanosis, or edema. NEURO: Grossly nonfocal. The patient is moving all extremities. LABORATORY DATA: White count is 11.5, it was 21.4 when the patient came in. Currently, hemoglobin is 10.4, hematocrit is 31.2, platelets 172. PT and INR within normal limits. Blood gas showed a pH of 7.49, pCO2 of 47, pO2 of 148 on 14/04 at a rate of 10, and 40% oxygen. Sodium 137, potassium 3.8, chloride 95, CO2 is 33, BUN is 27, creatinine 0.9, glucose 136. LFTs are within normal limits. ProBNP was 3770. IMAGING REPORTS: Chest x-ray shows possible left basal atelectasis, but no acute pneumonia. IMPRESSION: 1. [id number] respiratory failure. 2. Chronic obstructive pulmonary disease with exacerbation. 3. Congestive heart failure. 4. Sepsis and atrial fibrillation, which is chronic. PLAN: The patient is on nebulizers, Rocephin, and Levaquin, and I would continue the current treatment on this patient. He is on Solu-Medrol 80 mg IV q.6 hours. I would continue that for now and hopefully taper it off starting tomorrow. Continue oxygen. Continue BiPAP. Continue Advair and other supportive care. Continue Singulair on this patient. The patient has positive MRSA and DNA, and therefore we would start him on vancomycin until we have the cultures negative for MRSA. The patient is critically ill and would be kept in ICU. Time spent approximately 90 minutes. Thank you very much for the consultation. I will follow the patient with you. [id number]
[2016-09-25] MEDS: CEFTRIAXONE 1 GM in D5W 100 ML IV SCH (17:48)
[2016-09-25] MEDS: RIVAROXABAN 10 MG TAB PO SCH (17:53)
[2016-09-25] MEDS: Levofloxacin 750 mg/150 ml D5W 750 MG/150 ML RTU IV SCH (20:43)
[2016-09-25] MEDS: CHLORHEXIDINE (HIBICLENS) 4 OZ BOTTLE TOP SCH (20:43)
[2016-09-25] MEDS: MONTELUKAST SODIUM 10 MG TAB PO SCH (20:44)
[2016-09-25] MEDS: ALPRAZOLAM 0.5 MG TAB PO PRN (22:00)
[2016-09-26] MEDS: Albuterol/Ipratropium Neb 3 ML NEB NEB SCH ×4 (02:29→20:36)
[2016-09-26] MEDS: METHYLPREDNISOLONE 125 MG/2 ML VIAL IV SCH ×4 (03:24→20:58)
[2016-09-26 04:34] LABS: ALLEN'S TEST PASS; BEb 10.8 (+/- 2); TCO2 36.5 MMOL/L (23-27)
[2016-09-26 04:36] LABS: ABG Draw Site Left Radial; ABG Draw Tech BKL; BI-PAP 14/8 RATE 10 cm H2O
[2016-09-26] MEDS: PANTOPRAZOLE 40 MG TAB PO SCH (05:09)
[2016-09-26] MEDS: REGULAR INSULIN 100 UNITS/ML - 3 ML VIAL SQ SCH ×3 (05:09→16:59)
[2016-09-26 06:34] LABS: BLOOD UREA NITROGEN 36 MG/DL (9-20); CALCULATED OSMOLALITY 274 MOs/Kg (270-290); CHLORIDE 94 mEq/L (98-107); GLUCOSE 170 MG/DL (70-99); SODIUM LEVEL 136 mEq/L (137-146)
--- NOTE | 2016-09-26 07:34 | DIRPT ---
CLINICAL DATA: Respiratory failure, COPD EXAM: PORTABLE CHEST 1 VIEW COMPARISON: Portable chest x-ray of September 25, 2016 FINDINGS: The lungs are adequately inflated. The interstitial markings are mildly prominent in the mid and lower lung zones in this is more conspicuous today. There is no pleural effusion or alveolar infiltrate. The heart and pulmonary vascularity are normal. The mediastinum is normal in width. The bony thorax exhibits no acute abnormality. IMPRESSION: Slight interval increase in pulmonary interstitial edema since yesterday's study. There is no alveolar pneumonia. Electronically Signed By: Colin Kasper M.D. On: 09/26/2016 07:31
--- NOTE | 2016-09-26 07:55 | GENMEDPROG ---
Subjective Note: Patient in bed responsive follows commands. Still short of breath coughing producing fair amount thick sputum still tight in the chest and wheezy. No hemoptysis. Tolerated BiPAP all night last night. Denies any pains. Notes Reviewed: Yes Events from last night noted and discussed with Clinical Staff Current Medication List: Reviewed Currently: Reports: Cough, Wheezing, CARTWRIGHT, SOB, Sputum, Reflux Sx DVT Prophylaxis: Yes - Physical Examination Vital Signs and I&O: Last Vital Signs Temp 97.7 F 09/26/16 07:00 Pulse 92 09/26/16 07:00 Resp 20 09/26/16 07:00 BP 131/76 09/26/16 07:00 Pulse Ox 96 09/26/16 07:00 Oxygen Pulse Oxygen Saturation 96 O2 Device Nasal Cannula Oxygen Flow Rate 3 Fraction of Inspired Oxygen ( 30 FIO2) Intake & Output 09/23/16 09/24/16 09/25/16 09/26/16 23:59 23:59 23:59 23:59 Intake Total 101 2291 102 Output Total 1050 400 Balance 101 1241 -298 Patient's weight 72.303 kg 72.665 kg 71.696 kg General: Alert, Oriented x3, Cooperative, Mild distress HEENT: Normal, PERRLA, EOMI, Anicteric Sclera Neck: Non-tender, Normal Trachea alignment, Limited range of motion, JVD Lymphatics: Normal (no adenopathy) Respiratory: Diminished, Rhonchi, Tachypnea, Wheezes Cardiovascular: Regular rate, Normal S1, Normal S2, Murmurs, Irregular GI: Normal bowel sounds, Soft, Non tender, No hepatospenomegaly, No masses Extremities/Musculoskeletal: Edema, Cyanosis, DJD Skin: Warm,Dry and Intact, No rashes, No breakdown, No significant lesion Neurological: Normal speech, Cranial nerves 3-12 NL Psych/Mental Status: Anxious Lab/DI/Studies Reviewed: Allergies Penicillins Allergy (Intermediate, Verified 09/24/16 16:20) Rash-Generalized 09/25/16 05:10 09/26/16 05:55 Abnormal Lab Results 09/25/16 09/25/16 09/25/16 08:59 11:10 17:09 pH HCO3 Total CO2 Base Excess Sodium Chloride BUN Glucose POC Capillary Glucose 198 H 236 H Urine Protein 1+ H Urine Ketones 1+ H Urine WBC 2-5 H 09/25/16 09/26/16 09/26/16 23:14 04:28 05:00 pH 7.510 H HCO3 35.1 H Total CO2 36.5 H Base Excess 10.8 H Sodium Chloride BUN Glucose POC Capillary Glucose 232 H 172 H Urine Protein Urine Ketones Urine WBC 09/26/16 05:55 pH HCO3 Total CO2 Base Excess Sodium 136 L Chloride 94 L BUN 36 H Glucose 170 H POC Capillary Glucose Urine Protein Urine Ketones Urine WBC Last Vital Signs Temp 97.7 F 09/26/16 07:00 Pulse 92 09/26/16 07:00 Resp 20 09/26/16 07:00 BP 131/76 09/26/16 07:00 Pulse Ox 96 09/26/16 07:00 Microbiology 09/24/16 18:05 Nares Nasal Screen MRSA (PCR)(RUDY) - Final POSITIVE for MRSA DNA -------- In the absence of signs/symptoms of infection, nasal colonization with MRSA is not an indication of vancomycin therapy. Vancomycin is NOT EFFECTIVE for eradication of MRSA nasal colonization. Patient Name: JAY WRIGHT LOC: ICU : 1940 AGE: 75 Order Date:09/25/16 Date of Service: Report # [id number] Ord Physician: Skyler Monroy MD Exam # [id number] Emergency Physician: Minnie Lomax MD Exam(s): [id number] RAD/DG CHEST PORTABLE CLINICAL DATA: Respiratory failure, COPD EXAM: PORTABLE CHEST 1 VIEW COMPARISON: Portable chest x-ray of September 25, 2016 FINDINGS: The lungs are adequately inflated. The interstitial markings are mildly prominent in the mid and lower lung zones in this is more conspicuous today. There is no pleural effusion or alveolar infiltrate. The heart and pulmonary vascularity are normal. The mediastinum is normal in width. The bony thorax exhibits no acute abnormality. IMPRESSION: Slight interval increase in pulmonary interstitial edema since yesterday's study. There is no alveolar pneumonia. Electronically Signed By: Colin Kasper M.D. On: 09/26/2016 07:31 Electronically Signed By: Colin Kasper MD Electronically Signed Date/Time: [id number] Dictate Date/Time: 09/26/16 0729 Technologist: Dixie Garrido Transcribed - Assessment (1) Acute respiratory failure with hypoxia Acute J96.01 - ACUTE RESPIRATORY FAILURE WITH HYPOXIA Comment/Plan: Very slow progress on maximal pulmonary therapy. Continue O2 nebs and pulmonary toilet. Monitor chest x-ray and ABG. (2) Bacterial pneumonia Acute J15.9 - UNSPECIFIED BACTERIAL PNEUMONIA Comment/Plan: Continue continue broad-spectrum antibiotics in the form of Levaquin Rocephin and vancomycin (3) Sepsis Acute A41.9 - SEPSIS, UNSPECIFIED ORGANISM Qualifiers: Sepsis type: sepsis due to unspecified organism Qualified Code(s): A41.9 - Sepsis, unspecified organism Comment/Plan: Continue IV antibiotics and IV steroids monitor cultures. Monitor hemodynamics in ICU setting. (4) COPD exacerbation Acute J44.1 - CHRONIC OBSTRUCTIVE PULMONARY DISEASE W (ACUTE) EXACERBATION Comment/Plan: Continue nebulized bronchodilators and IV steroids. Continue mucolytics and aggressive pulmonary toileting. Wean off IV steroids gradually (5) Cardiomyopathy Acute I42.9 - CARDIOMYOPATHY, UNSPECIFIED Qualifiers: Cardiomyopathy type: unspecified Qualified Code(s): I42.9 - Cardiomyopathy , unspecified Comment/Plan: Continue salt restriction, monitor weight and fluid balance. Continue IV Lasix (6) Afib Chronic I48.91 - UNSPECIFIED ATRIAL FIBRILLATION Qualifiers: Atrial fibrillation type: chronic Qualified Code(s): I48.2 - Chronic atrial fibrillation Comment/Plan: Rate controlled on Cardizem and Multaq. Continue anticoagulation (7) GERD (gastroesophageal reflux disease) Chronic K21.9 - GASTRO-ESOPHAGEAL REFLUX DISEASE WITHOUT ESOPHAGITIS Qualifiers: Esophagitis presence: without esophagitis Qualified Code(s): K21.9 - Gastro -esophageal reflux disease without esophagitis Comment/Plan: Continue with PPI. (8) HTN (hypertension) Chronic I10 - ESSENTIAL (PRIMARY) HYPERTENSION Qualifiers: Hypertension type: essential hypertension Qualified Code(s): I10 - Essential (primary) hypertension Comment/Plan: Continue home meds keep SBP around 140.. (9) Anemia Acute D64.9 - ANEMIA, UNSPECIFIED Qualifiers: Anemia type: unspecified type Iron deficiency anemia type: I Vitamin B12 deficiency anemia type: V Folate deficiency anemia type: F Bone marrow failure anemia type: B Hemolytic anemia type: H Other causes of anemia: O Qualified Code(s): D64.9 - Anemia, unspecified Comment/Plan: Monitor counts (10) Physical debility Acute R53.81 - OTHER MALAISE Comment/Plan: Increase activity. Out of bed to chair. PTOT to see. Case Care Discussed with: Patient, Consultants, Family, Nursing Staff, Respiratory Therapy, Python Consultant Education/Counseling Given To: Patient Education/Counseling Given Regarding: Diagnosis, Treatment, Prognosis, Follow Up Total Time: 55 min . Critical Care: Yes Code: 291
[2016-09-26] MEDS: MUPIROCIN 2% OINT 22 GM TUBE NAS SCH ×2 (08:22→20:58)
[2016-09-26] MEDS: POTASSIUM CHLORIDE 20 MEQ TAB PO SCH (08:23)
[2016-09-26] MEDS: GUAIFENESIN 600 MG LA TAB PO SCH ×2 (08:23→20:58)
[2016-09-26] MEDS: DILTIAZEM HCL 120 MG CAPSULE.CR PO SCH (08:23)
[2016-09-26] MEDS: DRONEDARONE 400 MG TAB PO SCH ×2 (08:30→20:58)
[2016-09-26] MEDS: FUROSEMIDE 40 MG/4 ML VIAL IV SCH ×2 (08:35→16:56)
[2016-09-26] MEDS: FLUTICASONE/SALMETEROL 500/50 DISKUS INH SCH ×2 (09:14→20:37)
[2016-09-26] MEDS: BUDESONIDE 0.5 MG NEB NEB SCH ×2 (09:21→20:37)
[2016-09-26] MEDS: MORPHINE 2 MG/ML INJECTION IV PRN (10:23)
[2016-09-26] MEDS: ALPRAZOLAM 0.5 MG TAB PO PRN ×2 (11:35→22:34)
[2016-09-26] MEDS: CHOLECALCIFEROL 1000 UNITS TAB PO SCH (11:35)
[2016-09-26] MEDS: PEG-ELECTROLYTE 17 GM PACK PO SCH (12:33)
[2016-09-26] MEDS: CEFTRIAXONE 1 GM in D5W 100 ML IV SCH (17:00)
[2016-09-26] MEDS: RIVAROXABAN 10 MG TAB PO SCH (17:03)
[2016-09-26] MEDS: SENNA CONCENTRATE TAB PO SCH (18:48)
--- NOTE | 2016-09-26 19:18 | PCM.PULM ---
Chief Complaint: Patient has been slightly better however still having phlegm and wheezing and having tightness in his chest - Physical Examination Vital Signs and I&O: Last Vital Signs Temp 97.8 F 09/26/16 14:00 Pulse 138 H 09/26/16 18:07 Resp 22 09/26/16 16:00 BP 142/99 09/26/16 18:07 Pulse Ox 95 09/26/16 18:07 Oxygen Pulse Oxygen Saturation 95 O2 Device Nasal Cannula Oxygen Flow Rate 4 Fraction of Inspired Oxygen ( 30 FIO2) Intake & Output 09/23/16 09/24/16 09/25/16 09/26/16 23:59 23:59 23:59 23:59 Intake Total 101 2291 928 Output Total 1050 651 Balance 101 1241 277 Patient's weight 72.303 kg 72.665 kg 71.696 kg General: Alert, Oriented x3, Cooperative, Mild distress, Well appearing, Well nourished, Obese, Weakness, Fatigue Respiratory: Diminished, Rhonchi, Wheezes Cardiovascular: Regular rate, Regular rate and rhythm, Normal S1, No Gallops, Rubs/Murmurs, Normal S2, Good Pedal Pulses GI: Normal bowel sounds, Soft, Non tender, No hepatospenomegaly, No masses Extremities/Musculoskeletal: Normal pulses Skin: Warm,Dry and Intact, No rashes, No breakdown, No significant lesion Neurological: Normal Steady Gait, Normal speech, Cranial nerves 3-12 NL Psych/Mental Status: Appropriate, Anxious Result Diagrams: 09/25/16 05:10 09/26/16 05:55 Labs (last 24 hours): Laboratory Results - last 24 hr 09/25/16 09/26/16 09/26/16 23:14 04:28 05:00 Puncture Site Left radial pH 7.510 H pCO2 44.0 pO2 89.0 HCO3 35.1 H Total CO2 36.5 H Base Excess 10.8 H FiO2 % 30% Mode BiPAP 14/8 rate 10 Specimen Drawn By Bkl Sodium Potassium Chloride Carbon Dioxide Anion Gap BUN Creatinine Estimated GFR (MDRD) Glucose POC Capillary Glucose 232 H 172 H Calculated Osmolality Calcium Magnesium 09/26/16 09/26/16 09/26/16 05:55 11:08 16:39 Puncture Site pH pCO2 pO2 HCO3 Total CO2 Base Excess FiO2 % Mode BiPAP Specimen Drawn By Sodium 136 L Potassium 4.1 Chloride 94 L Carbon Dioxide 32 Anion Gap 14 BUN 36 H Creatinine 1.10 Estimated GFR (MDRD) > 60 Glucose 170 H POC Capillary Glucose 282 H 243 H Calculated Osmolality 274 Calcium 9.0 Magnesium 2.20 Lab/DI/Studies Reviewed: Chest x-ray Chest x-ray was seen personally patient seems to have some pulmonary edema and hyperinflated lung steen with increased interstitial prominence - Assessment/Plan (1) Acute respiratory failure with hypoxia Acute J96.01 - ACUTE RESPIRATORY FAILURE WITH HYPOXIA Comment/Plan: Patient has been in ICU today has been on BiPAP and continues to have wheezing and tightness in his chest feeling somewhat better has been coughing up some phlegm I would continue the current antibiotics on this patient including Levaquin however would add vancomycin since MRSA DNR has become positive and would repeat the chest x-ray and a blood gas in the morning patient may be able to go out of ICU tomorrow if he improves continue other supportive care and patient may use BiPAP while he is sleeping at night prognosis remains guarded patient is critically ill and would be kept in ICU tonight (2) COPD exacerbation Acute J44.1 - CHRONIC OBSTRUCTIVE PULMONARY DISEASE W (ACUTE) EXACERBATION Comment/Plan: Patient is currently on Solu-Medrol 80 mg IV q.6 hours along with nebulizers DVT and GI prophylaxis and antibiotics continue oxygen as needed to keep the pulse ox above 90% (3) Sepsis Acute A41.9 - SEPSIS, UNSPECIFIED ORGANISM sepsis due to unspecified organism A41.9 - Sepsis, unspecified organism Comment/Plan: Improving slowly would add vancomycin to the current regimen (4) Afib Chronic I48.91 - UNSPECIFIED ATRIAL FIBRILLATION chronic I48.2 - Chronic atrial fibrillation Comment/Plan: Stable at this time I personally saw and evaluated the patient.: Yes Total Face to Face Time: 35 minutes Case Care Discussed with: Patient, Nursing Staff Education/Counseling Given To: Patient Education/Counseling Given Regarding: Diagnosis, Treatment, Prognosis, Follow Up , Disposition Plan
[2016-09-26] MEDS ORDERED: Vancomycin HCl 0 MG in D5W 500 ML IV SCH (20:00)
[2016-09-26] MEDS: NS 1,000 ML IV SCH (20:57)
[2016-09-26] MEDS: Levofloxacin 750 mg/150 ml D5W 750 MG/150 ML RTU IV SCH (20:57)
[2016-09-26] MEDS: CHLORHEXIDINE (HIBICLENS) 4 OZ BOTTLE TOP SCH (20:58)
[2016-09-26] MEDS: MONTELUKAST SODIUM 10 MG TAB PO SCH (20:58)
[2016-09-27] MEDS: NS 1,000 ML IV SCH (00:49)
[2016-09-27] MEDS: REGULAR INSULIN 100 UNITS/ML - 3 ML VIAL SQ SCH ×5 (00:51→23:47)
[2016-09-27] MEDS: Albuterol/Ipratropium Neb 3 ML NEB NEB SCH ×4 (01:54→19:23)
[2016-09-27] MEDS: METHYLPREDNISOLONE 125 MG/2 ML VIAL IV SCH ×3 (03:54→20:32)
[2016-09-27 05:12] LABS: ABG Draw Site Right Radial; ALLEN'S TEST PASS; BEb 6.6 (+/- 2); TCO2 32.7 MMOL/L (23-27)
[2016-09-27 05:13] LABS: BI-PAP 14/8 cm H2O
[2016-09-27] MEDS: PANTOPRAZOLE 40 MG TAB PO SCH (05:29)
[2016-09-27 06:52] LABS: BLOOD UREA NITROGEN 42 MG/DL (9-20); CALCIUM 8.6 MG/DL (8.4-10.2); CALCULATED OSMOLALITY 282 MOs/Kg (270-290); CHLORIDE 94 mEq/L (98-107); GLUCOSE 259 MG/DL (70-99); SODIUM LEVEL 136 mEq/L (137-146)
--- NOTE | 2016-09-27 07:28 | DIRPT ---
CLINICAL DATA: Respiratory failure. EXAM: PORTABLE CHEST 1 VIEW COMPARISON: 09/26/2016. 09/24/2016. 12/28/2015. 06/20/2015. FINDINGS: Mediastinum and hilar structures are normal. Left base stable atelectasis and or scarring. No pleural effusion or pneumothorax. No acute bony abnormality. IMPRESSION: 1. Left base stable atelectasis and/or scarring. 2. Stable cardiomegaly. Electronically Signed By: Thanh Kirkland On: 09/27/2016 07:26
[2016-09-27] MEDS: FUROSEMIDE 40 MG/4 ML VIAL IV SCH (07:46)
[2016-09-27] MEDS: GUAIFENESIN 600 MG LA TAB PO SCH ×2 (08:21→20:33)
[2016-09-27] MEDS: DILTIAZEM HCL 120 MG CAPSULE.CR PO SCH (08:21)
[2016-09-27] MEDS: POTASSIUM CHLORIDE 20 MEQ TAB PO SCH (08:21)
[2016-09-27] MEDS: DRONEDARONE 400 MG TAB PO SCH ×2 (08:21→20:33)
[2016-09-27] MEDS: MUPIROCIN 2% OINT 22 GM TUBE NAS SCH ×2 (08:22→20:31)
--- NOTE | 2016-09-27 08:49 | GENMEDPROG ---
Subjective Note: Patient in bed, responsive follows commands. Overall breathing slightly better patient still profoundly weak and dyspneic with minimal physical exertion. Tolerated BiPAP all night last night. P.o. intake improving. Notes Reviewed: Yes Events from last night noted and discussed with Clinical Staff Current Medication List: Reviewed Currently: Reports: Cough, Wheezing, CARTWRIGHT, SOB, Sputum, Reflux Sx DVT Prophylaxis: Yes - Physical Examination Vital Signs and I&O: Last Vital Signs Temp 97.5 F 09/27/16 07:00 Pulse 81 09/27/16 07:00 Resp 09/26/16 22:55 BP 130/75 09/27/16 07:00 Pulse Ox 100 09/27/16 07:00 Oxygen Pulse Oxygen Saturation 100 O2 Device Nasal Cannula Oxygen Flow Rate 4 Fraction of Inspired Oxygen ( 30 FIO2) Intake & Output 09/24/16 09/25/16 09/26/16 09/27/16 23:59 23:59 23:59 23:59 Intake Total 101 2291 1142 999 Output Total 1050 951 550 Balance 101 1241 191 449 Patient's weight 72.303 kg 72.665 kg 71.696 kg 70.364 kg General: Alert, Oriented x3, Cooperative, Mild distress HEENT: Normal, PERRLA, EOMI, Anicteric Sclera Neck: Non-tender, Normal Trachea alignment, Limited range of motion, JVD Lymphatics: Normal (no adenopathy) Respiratory: Diminished, Rhonchi, Tachypnea, Wheezes Cardiovascular: Regular rate, Normal S1, Normal S2, Murmurs, Irregular GI: Normal bowel sounds, Soft, Non tender, No hepatospenomegaly, No masses Extremities/Musculoskeletal: Edema, Cyanosis, DJD Skin: Warm,Dry and Intact, No rashes, No breakdown, No significant lesion Neurological: Normal speech, Cranial nerves 3-12 NL Psych/Mental Status: Anxious Lab/DI/Studies Reviewed: Allergies Penicillins Allergy (Intermediate, Verified 09/24/16 16:20) Rash-Generalized Last Vital Signs Temp 97.5 F 09/27/16 07:00 Pulse 81 09/27/16 07:00 Resp 09/26/16 22:55 BP 130/75 09/27/16 07:00 Pulse Ox 100 09/27/16 07:00 09/25/16 05:10 09/27/16 06:00 Patient Name: JAY WRIGHT LOC: ICU : 1940 AGE: 75 Order Date:09/26/16 Date of Service: Report # [id number] Ord Physician: Skyler Monroy MD Exam # [id number] Emergency Physician: Minnie Lomax MD Exam(s): [id number] RAD/DG CHEST PORTABLE CLINICAL DATA: Respiratory failure. EXAM: PORTABLE CHEST 1 VIEW COMPARISON: 09/26/2016. 09/24/2016. 12/28/2015. 06/20/2015. FINDINGS: Mediastinum and hilar structures are normal. Left base stable atelectasis and or scarring. No pleural effusion or pneumothorax. No acute bony abnormality. IMPRESSION: 1. Left base stable atelectasis and/or scarring. 2. Stable cardiomegaly. Electronically Signed By: Thanh Kirkland On: 09/27/2016 07:26 Electronically Signed By: Thanh Kirkland MD Electronically Signed Date/Time: [id number] Dictate Date/Time: 09/27/16 0724 Technologist: Josefa Lozano Transcribed - Assessment (1) Acute respiratory failure with hypoxia Acute J96.01 - ACUTE RESPIRATORY FAILURE WITH HYPOXIA Comment/Plan: Very slow clinical improvement on maximal pulmonary therapy. Continue O2 nebs pulmonary toilet continue BiPAP HS. (2) Bacterial pneumonia Acute J15.9 - UNSPECIFIED BACTERIAL PNEUMONIA Comment/Plan: Continue continue broad-spectrum antibiotics in the form of Levaquin Rocephin and vancomycin. Continue aggressive pulmonary toileting and mucolytics (3) Sepsis Acute A41.9 - SEPSIS, UNSPECIFIED ORGANISM Qualifiers: Sepsis type: sepsis due to unspecified organism Qualified Code(s): A41.9 - Sepsis, unspecified organism Comment/Plan: Continue IV antibiotics and IV steroids monitor cultures. Monitor hemodynamics in ICU setting. (4) COPD exacerbation Acute J44.1 - CHRONIC OBSTRUCTIVE PULMONARY DISEASE W (ACUTE) EXACERBATION Comment/Plan: Continue nebulized bronchodilators and IV steroids. Continue mucolytics and aggressive pulmonary toileting. Wean off IV steroids gradually (5) Cardiomyopathy Acute I42.9 - CARDIOMYOPATHY, UNSPECIFIED Qualifiers: Cardiomyopathy type: unspecified Qualified Code(s): I42.9 - Cardiomyopathy , unspecified Comment/Plan: Continue salt restriction, monitor weight and fluid balance. Continue IV Lasix. Seems compensated (6) Afib Chronic I48.91 - UNSPECIFIED ATRIAL FIBRILLATION Qualifiers: Atrial fibrillation type: chronic Qualified Code(s): I48.2 - Chronic atrial fibrillation Comment/Plan: Rate controlled on Cardizem and Multaq. Continue anticoagulation (7) GERD (gastroesophageal reflux disease) Chronic K21.9 - GASTRO-ESOPHAGEAL REFLUX DISEASE WITHOUT ESOPHAGITIS Qualifiers: Esophagitis presence: without esophagitis Qualified Code(s): K21.9 - Gastro -esophageal reflux disease without esophagitis Comment/Plan: Continue with PPI. (8) HTN (hypertension) Chronic I10 - ESSENTIAL (PRIMARY) HYPERTENSION Qualifiers: Hypertension type: essential hypertension Qualified Code(s): I10 - Essential (primary) hypertension Comment/Plan: Continue home meds keep SBP around 140.. (9) Anemia Acute D64.9 - ANEMIA, UNSPECIFIED Qualifiers: Anemia type: unspecified type Iron deficiency anemia type: I Vitamin B12 deficiency anemia type: V Folate deficiency anemia type: F Bone marrow failure anemia type: B Hemolytic anemia type: H Other causes of anemia: O Qualified Code(s): D64.9 - Anemia, unspecified Comment/Plan: Monitor counts (10) Physical debility Acute R53.81 - OTHER MALAISE Comment/Plan: Increase activity. Out of bed to chair. PTOT to see. Case Care Discussed with: Patient, Nursing Staff, Respiratory Therapy, Radiotelephone Technical Operator Education/Counseling Given To: Patient Education/Counseling Given Regarding: Diagnosis, Treatment, Prognosis, Follow Up Total Time: 55 min . Critical Care: No Code: 15282 (12+)
[2016-09-27] MEDS: FLUTICASONE/SALMETEROL 500/50 DISKUS INH SCH ×2 (09:30→19:28)
--- NOTE | 2016-09-27 09:53 | PCM.PULM ---
Chief Complaint: Uneventful overnight with no acute distress Patient in Intensive care unit bed alert and responsive Breathing is fair. Use BIPAP at night Current medication list reviewed:yes Notes reviewed:yes,Events from last night noted and discussed with Clinical Staff DVT/GI prophylaxis:yes - Physical Examination Vital Signs and I&O: Last Vital Signs Temp 97.5 F 09/27/16 07:00 Pulse 81 09/27/16 07:00 Resp 21 09/26/16 22:55 BP 130/75 09/27/16 07:00 Pulse Ox 96 09/27/16 08:00 Oxygen Pulse Oxygen Saturation 96 O2 Device Nasal Cannula Oxygen Flow Rate 4 Fraction of Inspired Oxygen ( 30 FIO2) Intake & Output 09/24/16 09/25/16 09/26/16 09/27/16 23:59 23:59 23:59 23:59 Intake Total 101 2291 1142 999 Output Total 1050 951 900 Balance 101 1241 191 99 Patient's weight 72.303 kg 72.665 kg 71.696 kg 70.364 kg General: Alert, Oriented x3, Cooperative, No acute distress, Obese, Weakness, Fatigue Respiratory: Diminished, Rhonchi, Wheezes Cardiovascular: Regular rate, Regular rate and rhythm, Normal S1, No Gallops, Rubs/Murmurs, Normal S2 GI: Normal bowel sounds, Soft, Non tender, No hepatospenomegaly, No masses, Obese Extremities/Musculoskeletal: Normal pulses Skin: Warm,Dry and Intact, No rashes, No breakdown, No significant lesion Neurological: Normal Steady Gait, Normal speech, Normal tone, Cranial nerves 3- 12 NL Psych/Mental Status: Normal Affect, Anxious Result Diagrams: 09/25/16 05:10 09/27/16 06:00 Labs (last 24 hours): Laboratory Results - last 24 hr 09/26/16 09/26/16 09/27/16 11:08 16:39 00:50 Puncture Site pH pCO2 pO2 HCO3 Total CO2 Base Excess FiO2 % Mode BiPAP Specimen Drawn By Sodium Potassium Chloride Carbon Dioxide Anion Gap BUN Creatinine Estimated GFR (MDRD) Glucose POC Capillary Glucose 282 H 243 H 243 H Calculated Osmolality Calcium 09/27/16 09/27/16 09/27/16 05:06 05:07 06:00 Puncture Site Right radial pH 7.460 H pCO2 44.0 pO2 87.0 HCO3 31.3 H Total CO2 32.7 H Base Excess 6.6 H FiO2 % .30 Mode BiPAP 14/8 Specimen Drawn By Robcha Sodium 136 L Potassium 4.2 Chloride 94 L Carbon Dioxide 33 Anion Gap 13 BUN 42 H Creatinine 1.30 H Estimated GFR (MDRD) 54 L Glucose 259 H POC Capillary Glucose 278 H Calculated Osmolality 282 Calcium 8.6 Lab/DI/Studies Reviewed: EKG: NSR, NO ST or ST wave changes noted Cxray: 1 view 1. Left base stable atelectasis and/or scarring. 2. Stable cardiomegaly Medications Diltiazem HCl (Cardizem Cd) 120 mg PO DAILY [facility] Stop: 10/09/16 08:59 Last Admin: 09/25/16 08:39 Dose: 120 mg Albuterol/Ipratropium (Duoneb) 3 ml NEB Q2H PRN PRN Reason: Wheezing Stop: 10/08/16 16:59 Morphine Sulfate (Morphine Sulfate) 10 mg NEB RTQ8 PRN PRN Reason: Air Hunger Stop: 10/01/16 17:02 Potassium Chloride (Klor-Con M20) 40 meq PO DAILY [facility] Stop: 10/09/16 08:59 Last Admin: 09/25/16 08:39 Dose: 40 meq Fluticasone/Salmeterol (Advair 500/50) 1 puff INH BID [facility] Stop: 10/09/16 08:59 Last Admin: 09/25/16 09:12 Dose: 1 puff Albuterol/Ipratropium (Duoneb) 3 ml NEB RTQ6 [facility] Stop: 10/08/16 16:59 Last Admin: 09/25/16 09:11 Dose: 3 ml Alprazolam (Xanax) 0.5 mg PO TID PRN PRN Reason: Anxiety Stop: 10/08/16 16:52 Ceftriaxone Sodium 1 gm/ (Dextrose) 100 mls @ 200 mls/hr IV Q24H [facility] Stop: 10/01/16 17:59 Last Admin: 09/24/16 18:24 Dose: 200 mls/hr Dronedarone (Multaq) 400 mg PO BID [facility] Stop: 10/08/16 20:59 Last Admin: 09/25/16 08:39 Dose: 400 mg Guaifenesin (Mucinex) 1,200 mg PO BID [facility] Stop: 10/08/16 20:59 Last Admin: 09/25/16 08:39 Dose: 1,200 mg Insulin Human Regular (Humulin R) 0 units SQ Q6 SHE[facility] PRN Reason: Protocol Stop: 10/08/16 16:59 Last Admin: 09/25/16 06:40 Dose: Not Given Levofloxacin/Dextrose (Levaquin 750 Mg) 750 mg in 150 mls @ 100 mls/hr IV Q24H [facility] Stop: 10/02/16 19:59 Lorazepam (Ativan) 1 mg IV Q4H PRN PRN Reason: Anxiety/Agitation Stop: 10/08/16 21:42 Last Admin: 09/24/16 22:01 Dose: 1 mg Montelukast Sodium (Singulair) 10 mg PO HS [facility] Stop: 10/08/16 20:59 Last Admin: 09/24/16 22:04 Dose: Not Given Morphine Sulfate (Morphine Sulfate) 3 mg IV Q2H PRN PRN Reason: Pain-NPO/PO Med Not Effective Stop: 10/01/16 16:59 Last Admin: 09/24/16 22:02 Dose: 3 mg Pantoprazole Sodium (Protonix) 40 mg PO 0600 [facility] Stop: 10/08/16 16:59 Last Admin: 09/25/16 06:40 Dose: Not Given Mupirocin (Bactroban) 1 gm IRWIN BID Stop: 09/25/16 09:30 Rivaroxaban (Xarelto) 20 mg PO 1800 [facility] Stop: 10/09/16 17:59 Methylprednisolone Sodium Succinate (Solu-Medrol) 60 mg IV Q8H [facility] Stop: 10/11/16 11:59 Furosemide (Lasix) 40 mg IV DAILY [facility] Stop: 10/12/16 08:59 Linezolid (Zyvox 600 Mg/300 Ml Premix) 600 mg in 300 mls @ 150 mls/hr IV Q12H [facility] Stop: 09/30/16 11:59 - Assessment/Plan (1) Acute respiratory failure with hypoxia Acute J96.01 - ACUTE RESPIRATORY FAILURE WITH HYPOXIA Comment/Plan: Patient's shows no significant improvement as compared to yesterday still has chest congestion with wheezing and tightness and weakness continues to have some phlegm I would continue the antibiotics patient is on Levaquin and change vancomycin to linezolid as patient has rising creatinine his MRSA 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 (2) COPD exacerbation Acute J44.1 - CHRONIC OBSTRUCTIVE PULMONARY DISEASE W (ACUTE) EXACERBATION Comment/Plan: Patient is currently on Solu-Medrol 80 mg IV q.6 hours along with nebulizers DVT and GI prophylaxis and antibiotics continue oxygen as needed to keep the pulse ox above 90% (3) Sepsis Acute A41.9 - SEPSIS, UNSPECIFIED ORGANISM sepsis due to unspecified organism A41.9 - Sepsis, unspecified organism Comment/Plan: Improving slowly would add vancomycin to the current regimen (4) Afib Chronic I48.91 - UNSPECIFIED ATRIAL FIBRILLATION chronic I48.2 - Chronic atrial fibrillation Comment/Plan: Stable at this time
[2016-09-27] MEDS: Linezolid 600 mg/300 ml Premix 600 MG/300 ML RTU IV SCH ×2 (12:04→23:43)
[2016-09-27] MEDS: CHOLECALCIFEROL 1000 UNITS TAB PO SCH (12:05)
[2016-09-27] MEDS: RIVAROXABAN 10 MG TAB PO SCH (17:43)
[2016-09-27] MEDS: CEFTRIAXONE 1 GM in D5W 100 ML IV SCH (17:43)
[2016-09-27] MEDS: Levofloxacin 750 mg/150 ml D5W 750 MG/150 ML RTU IV SCH (20:31)
[2016-09-27] MEDS: PEG-ELECTROLYTE 17 GM PACK PO SCH (20:33)
[2016-09-27] MEDS: CHLORHEXIDINE (HIBICLENS) 4 OZ BOTTLE TOP SCH (20:33)
[2016-09-27] MEDS: MONTELUKAST SODIUM 10 MG TAB PO SCH (20:33)
[2016-09-27] MEDS: SENNA CONCENTRATE TAB PO SCH (20:33)
[2016-09-27] MEDS: ALPRAZOLAM 0.5 MG TAB PO PRN (22:17)
[2016-09-28] MEDS: Albuterol/Ipratropium Neb 3 ML NEB NEB SCH ×4 (01:12→19:21)
[2016-09-28 03:34] LABS: AUTOMATED BASOPHIL 0.1 % (0-2); AUTOMATED LYMPH 2.1 % (17-44); AUTOMATED MONOCYTE 5.6 % (3-10); AUTOMATED NEUTROPHIL 92.2 % (45-76); MPV 7.8 fL (7.4-10.4)
[2016-09-28 03:43] LABS: BLOOD UREA NITROGEN 42 MG/DL (9-20); CALCIUM 8.6 MG/DL (8.4-10.2); CALCULATED OSMOLALITY 280 MOs/Kg (270-290); CHLORIDE 95 mEq/L (98-107); GLUCOSE 253 MG/DL (70-99); SODIUM LEVEL 135 mEq/L (137-146)
[2016-09-28] MEDS: METHYLPREDNISOLONE 125 MG/2 ML VIAL IV SCH ×3 (05:28→20:41)
[2016-09-28] MEDS: PANTOPRAZOLE 40 MG TAB PO SCH (05:29)
[2016-09-28] MEDS: REGULAR INSULIN 100 UNITS/ML - 3 ML VIAL SQ SCH ×4 (05:29→20:42)
[2016-09-28] MEDS: FLUTICASONE/SALMETEROL 500/50 DISKUS INH SCH ×2 (07:31→19:30)
[2016-09-28] MEDS: DILTIAZEM HCL 120 MG CAPSULE.CR PO SCH (08:07)
[2016-09-28] MEDS: GUAIFENESIN 600 MG LA TAB PO SCH ×2 (08:07→20:42)
[2016-09-28] MEDS: POTASSIUM CHLORIDE 20 MEQ TAB PO SCH (08:07)
[2016-09-28] MEDS: DRONEDARONE 400 MG TAB PO SCH ×2 (08:08→20:42)
[2016-09-28] MEDS: MUPIROCIN 2% OINT 22 GM TUBE NAS SCH ×2 (08:08→20:43)
[2016-09-28] MEDS ORDERED: FUROSEMIDE 40 MG/4 ML VIAL IV SCH (09:00)
--- NOTE | 2016-09-28 09:41 | PCM.PULM ---
Chief Complaint: Patient in regular bed alert and responsive. Breathing is still very short of breath with little exertion, wheeze and cough. Denies chest pain. He wears BIPAP at night. Current medication list and notes reviewed:yes, Events from last night noted and discussed with Clinical Staff - Physical Examination Vital Signs and I&O: Last Vital Signs Temp 98 F 09/28/16 07:39 Pulse 104 09/28/16 07:39 Resp 22 09/28/16 07:39 BP 173/90 09/28/16 07:39 Pulse Ox 98 09/28/16 07:39 Oxygen Pulse Oxygen Saturation 98 O2 Device Nasal Cannula Oxygen Flow Rate 4.5 Fraction of Inspired Oxygen ( 30 FIO2) Intake & Output 09/25/16 09/26/16 09/27/16 09/28/16 23:59 23:59 23:59 23:59 Intake Total 2291 1142 2165 1267 Output Total 1293 713 9346 400 Balance 1241 191 15 867 Patient's weight 72.665 kg 71.696 kg 70.364 kg 70.392 kg General: Alert, Oriented x3, No acute distress, Well appearing, Obese, Fatigue Respiratory: Diminished (bilaterally), Wheezes Cardiovascular: Normal S1, No Gallops,Rubs/Murmurs, Normal S2, Irregular GI: Normal bowel sounds, Soft, Non tender, No hepatospenomegaly Extremities/Musculoskeletal: Normal pulses Skin: Warm,Dry and Intact, No rashes, No significant lesion Neurological: Normal Steady Gait, Normal speech, Strength at 5/5 X4 ext, Cranial nerves 3-12 NL Psych/Mental Status: Appropriate, Cooperative, Anxious Result Diagrams: 09/28/16 03:00 09/28/16 03:00 Labs (last 24 hours): Laboratory Results - last 24 hr 09/28/16 09/28/16 09/28/16 03:00 03:00 05:22 WBC 9.4 RBC 3.38 L Hgb 10.2 L Hct 30.6 L MCV 91 MCH 30.2 MCHC 33.4 RDW 14.6 H Plt Count 173 MPV 7.8 Neut % (Auto) 92.2 H Lymph % (Auto) 2.1 L Cannon % (Auto) 5.6 Eos % (Auto) 0.0 Baso % (Auto) 0.1 Absolute Neuts (auto) 8.65 H Absolute Lymphs (auto) 0.19 L Platelet Estimate Norm RBC Morphology Norm Sodium 135 L Potassium 4.2 Chloride 95 L Carbon Dioxide 33 Anion Gap 11 BUN 42 H Creatinine 1.20 Estimated GFR (MDRD) 59 L Glucose 253 H POC Capillary Glucose 251 H Calculated Osmolality 280 Calcium 8.6 Magnesium 2.30 Lab/DI/Studies Reviewed: EKG: NSR, NO ST or ST wave changes noted Medications Diltiazem HCl (Cardizem Cd) 120 mg PO DAILY [facility] Stop: 10/09/16 08:59 Last Admin: 09/25/16 08:39 Dose: 120 mg Albuterol/Ipratropium (Duoneb) 3 ml NEB Q2H PRN PRN Reason: Wheezing Stop: 10/08/16 16:59 Morphine Sulfate (Morphine Sulfate) 10 mg NEB RTQ8 PRN PRN Reason: Air Hunger Stop: 10/01/16 17:02 Potassium Chloride (Klor-Con M20) 40 meq PO DAILY [facility] Stop: 10/09/16 08:59 Last Admin: 09/25/16 08:39 Dose: 40 meq Fluticasone/Salmeterol (Advair 500/50) 1 puff INH BID [facility] Stop: 10/09/16 08:59 Last Admin: 09/25/16 09:12 Dose: 1 puff Sodium Chloride (Normal Saline) 1,000 mls @ 20 mls/hr IV Q48H [facility] Stop: 10/08/16 16:59 Last Admin: 09/24/16 18:24 Dose: Not Given Albuterol/Ipratropium (Duoneb) 3 ml NEB RTQ6 [facility] Stop: 10/08/16 16:59 Last Admin: 09/25/16 09:11 Dose: 3 ml Alprazolam (Xanax) 0.5 mg PO TID PRN PRN Reason: Anxiety Stop: 10/08/16 16:52 Ceftriaxone Sodium 1 gm/ (Dextrose) 100 mls @ 200 mls/hr IV Q24H [facility] Stop: 10/01/16 17:59 Last Admin: 09/24/16 18:24 Dose: 200 mls/hr Dronedarone (Multaq) 400 mg PO BID [facility] Stop: 10/08/16 20:59 Last Admin: 09/25/16 08:39 Dose: 400 mg Guaifenesin (Mucinex) 1,200 mg PO BID [facility] Stop: 10/08/16 20:59 Last Admin: 09/25/16 08:39 Dose: 1,200 mg Insulin Human Regular (Humulin R) 0 units SQ Q6 [facility] PRN Reason: Protocol Stop: 10/08/16 16:59 Last Admin: 09/25/16 06:40 Dose: Not Given Levofloxacin/Dextrose (Levaquin 750 Mg) 750 mg in 150 mls @ 100 mls/hr IV Q24H [facility] Stop: 10/02/16 19:59 Lorazepam (Ativan) 1 mg IV Q4H PRN PRN Reason: Anxiety/Agitation Stop: 10/08/16 21:42 Last Admin: 09/24/16 22:01 Dose: 1 mg Montelukast Sodium (Singulair) 10 mg PO HS [facility] Stop: 10/08/16 20:59 Last Admin: 09/24/16 22:04 Dose: Not Given Morphine Sulfate (Morphine Sulfate) 3 mg IV Q2H PRN PRN Reason: Pain-NPO/PO Med Not Effective Stop: 10/01/16 16:59 Last Admin: 09/24/16 22:02 Dose: 3 mg Pantoprazole Sodium (Protonix) 40 mg PO 0600 [facility] Stop: 10/08/16 16:59 Last Admin: 09/25/16 06:40 Dose: Not Given Mupirocin (Bactroban) 1 gm IRWIN BID Stop: 09/25/16 09:30 Rivaroxaban (Xarelto) 20 mg PO 1800 [facility] Stop: 10/09/16 17:59 Methylprednisolone Sodium Succinate (Solu-Medrol) 60 mg IV Q8H [facility] Stop: 10/11/16 11:59 Furosemide (Lasix) 40 mg IV DAILY [facility] Stop: 10/12/16 08:59 Linezolid (Zyvox 600 Mg/300 Ml Premix) 600 mg in 300 mls @ 150 mls/hr IV Q12H [facility] Stop: 09/30/16 11:59 - Assessment/Plan (1) Acute respiratory failure with hypoxia Acute J96.01 - ACUTE RESPIRATORY FAILURE WITH HYPOXIA Comment/Plan: Patient continues to stay on antibiotics including linezolid Levaquin and Rocephin treated he is improving very slowly I would continue the supportive care on this patient for now and would repeat a chest x-ray and a blood gas in the morning patient has been coughing up some phlegm. Long-term prognosis is guarded however I think that patient is most likely going to improve within the next few days (2) COPD exacerbation Acute J44.1 - CHRONIC OBSTRUCTIVE PULMONARY DISEASE W (ACUTE) EXACERBATION Comment/Plan: Continue steroids DVT and GI prophylaxis nebulizers and oxygen I would cut down the Solu-Medrol to 60 mg IV q.6 hours use BiPAP as needed and keep the pulse ox between 88 and 92% (3) Sepsis Acute A41.9 - SEPSIS, UNSPECIFIED ORGANISM sepsis due to unspecified organism A41.9 - Sepsis, unspecified organism Comment/Plan: I would continue linezolid at this time and would follow the patient closely along with Levaquin and Rocephin (4) Afib Chronic I48.91 - UNSPECIFIED ATRIAL FIBRILLATION chronic I48.2 - Chronic atrial fibrillation Comment/Plan: Stable at this time
--- NOTE | 2016-09-28 11:02 | GENMEDPROG ---
Subjective Note: Patient in bed responsive follows commands. Still short of breath coughing producing small amount of sputum. Still dyspneic with minimal physical exertion. No hemoptysis. P.o. intake poor. Notes Reviewed: Yes Events from last night noted and discussed with Clinical Staff Current Medication List: Reviewed Currently: Reports: Cough, Wheezing, CARTWRIGHT, SOB, Sputum, Reflux Sx DVT Prophylaxis: Yes - Physical Examination Vital Signs and I&O: Last Vital Signs Temp 98 F 09/28/16 07:39 Pulse 104 09/28/16 10:15 Resp 22 09/28/16 07:39 BP 173/90 09/28/16 07:39 Pulse Ox 98 09/28/16 07:39 Oxygen Pulse Oxygen Saturation 98 O2 Device Nasal Cannula Oxygen Flow Rate 4.5 Fraction of Inspired Oxygen ( 30 FIO2) Intake & Output 09/25/16 09/26/16 09/27/16 09/28/16 23:59 23:59 23:59 23:59 Intake Total 2291 1142 2165 1267 Output Total 9679 573 9573 400 Balance 1241 191 15 867 Patient's weight 72.665 kg 71.696 kg 70.364 kg 70.392 kg General: Alert, Oriented x3, Cooperative, Mild distress HEENT: Normal, PERRLA, EOMI, Anicteric Sclera Neck: Non-tender, Normal Trachea alignment, Limited range of motion, JVD Lymphatics: Normal (no adenopathy) Respiratory: Diminished, Rhonchi, Wheezes Cardiovascular: Regular rate, Normal S1, Normal S2, Murmurs, Irregular GI: Normal bowel sounds, Soft, Non tender, No hepatospenomegaly, No masses Extremities/Musculoskeletal: Edema, Cyanosis, DJD Skin: Warm,Dry and Intact, No rashes, No breakdown, No significant lesion Neurological: Normal speech, Cranial nerves 3-12 NL Psych/Mental Status: Anxious Lab/DI/Studies Reviewed: Allergies Penicillins Allergy (Intermediate, Verified 09/24/16 16:20) Rash-Generalized 09/28/16 03:00 09/28/16 03:00 Abnormal Lab Results 09/27/16 09/27/16 09/27/16 11:59 17:12 23:05 RBC Hgb Hct RDW Neut % (Auto) Lymph % (Auto) Absolute Neuts (auto) Absolute Lymphs (auto) Sodium Chloride BUN Estimated GFR (MDRD) Glucose POC Capillary Glucose 236 H 267 H 270 H 09/28/16 09/28/16 09/28/16 03:00 03:00 05:22 RBC 3.38 L Hgb 10.2 L Hct 30.6 L RDW 14.6 H Neut % (Auto) 92.2 H Lymph % (Auto) 2.1 L Absolute Neuts (auto) 8.65 H Absolute Lymphs (auto) 0.19 L Sodium 135 L Chloride 95 L BUN 42 H Estimated GFR (MDRD) 59 L Glucose 253 H POC Capillary Glucose 251 H Last Vital Signs Temp 98 F 09/28/16 07:39 Pulse 104 09/28/16 10:15 Resp 22 09/28/16 07:39 BP 173/90 09/28/16 07:39 Pulse Ox 98 09/28/16 07:39 - Assessment (1) Acute respiratory failure with hypoxia Acute J96.01 - ACUTE RESPIRATORY FAILURE WITH HYPOXIA Comment/Plan: Very slow clinical improvement on maximal pulmonary therapy. Continue O2 nebs pulmonary toilet continue BiPAP HS. (2) Bacterial pneumonia Acute J15.9 - UNSPECIFIED BACTERIAL PNEUMONIA Comment/Plan: Continue continue broad-spectrum antibiotics in the form of Levaquin Rocephin and Zyvox. Continue aggressive pulmonary toileting and mucolytics (3) Sepsis Acute A41.9 - SEPSIS, UNSPECIFIED ORGANISM Qualifiers: Sepsis type: sepsis due to unspecified organism Qualified Code(s): A41.9 - Sepsis, unspecified organism Comment/Plan: Continue IV antibiotics and IV steroids monitor cultures. Hemodynamically stable. (4) COPD exacerbation Acute J44.1 - CHRONIC OBSTRUCTIVE PULMONARY DISEASE W (ACUTE) EXACERBATION Comment/Plan: Continue nebulized bronchodilators and IV steroids. Continue mucolytics and aggressive pulmonary toileting. Wean off IV steroids gradually (5) Cardiomyopathy Acute I42.9 - CARDIOMYOPATHY, UNSPECIFIED Qualifiers: Cardiomyopathy type: unspecified Qualified Code(s): I42.9 - Cardiomyopathy , unspecified Comment/Plan: Continue salt restriction, monitor weight and fluid balance. Continue IV Lasix. Seems compensated (6) Afib Chronic I48.91 - UNSPECIFIED ATRIAL FIBRILLATION Qualifiers: Atrial fibrillation type: chronic Qualified Code(s): I48.2 - Chronic atrial fibrillation Comment/Plan: Rate controlled on Cardizem and Multaq. Continue anticoagulation. Keep K more than 4 magnesium more than 2 (7) GERD (gastroesophageal reflux disease) Chronic K21.9 - GASTRO-ESOPHAGEAL REFLUX DISEASE WITHOUT ESOPHAGITIS Qualifiers: Esophagitis presence: without esophagitis Qualified Code(s): K21.9 - Gastro -esophageal reflux disease without esophagitis Comment/Plan: Continue with PPI. (8) HTN (hypertension) Chronic I10 - ESSENTIAL (PRIMARY) HYPERTENSION Qualifiers: Hypertension type: essential hypertension Qualified Code(s): I10 - Essential (primary) hypertension Comment/Plan: Continue home meds keep SBP around 140.. (9) Anemia Acute D64.9 - ANEMIA, UNSPECIFIED Qualifiers: Anemia type: unspecified type Iron deficiency anemia type: I Vitamin B12 deficiency anemia type: V Folate deficiency anemia type: F Bone marrow failure anemia type: B Hemolytic anemia type: H Other causes of anemia: O Qualified Code(s): D64.9 - Anemia, unspecified Comment/Plan: Monitor counts (10) Physical debility Acute R53.81 - OTHER MALAISE Comment/Plan: Increase activity. Out of bed to chair. PTOT to see. Case Care Discussed with: Patient, Consultants, Nursing Staff, Sticker Operator Education/Counseling Given To: Patient Education/Counseling Given Regarding: Diagnosis, Treatment, Prognosis, Follow Up Total Time: 50 min . Critical Care: No Code: 77835 (12+)
[2016-09-28] MEDS: CHOLECALCIFEROL 1000 UNITS TAB PO SCH (11:59)
[2016-09-28] MEDS ORDERED: FUROSEMIDE 40 MG/4 ML VIAL IV ONE (12:00)
[2016-09-28] MEDS: Linezolid 600 mg/300 ml Premix 600 MG/300 ML RTU IV SCH (12:06)
[2016-09-28] MEDS: ALPRAZOLAM 0.5 MG TAB PO PRN (15:46)
[2016-09-28] MEDS: NS 1,000 ML IV SCH (15:47)
[2016-09-28] MEDS: FUROSEMIDE 40 MG/4 ML VIAL IV SCH (15:47)
[2016-09-28] MEDS: RIVAROXABAN 10 MG TAB PO SCH (17:24)
[2016-09-28] MEDS: CEFTRIAXONE 1 GM in D5W 100 ML IV SCH (17:24)
[2016-09-28] MEDS: Levofloxacin 750 mg/150 ml D5W 750 MG/150 ML RTU IV SCH (20:41)
[2016-09-28] MEDS: MONTELUKAST SODIUM 10 MG TAB PO SCH (20:42)
[2016-09-28] MEDS: SENNA CONCENTRATE TAB PO SCH (20:42)
[2016-09-28] MEDS: PEG-ELECTROLYTE 17 GM PACK PO SCH (20:42)
[2016-09-28] MEDS: LORAZEPAM 2 MG/ML VIAL IV PRN (22:32)
[2016-09-29] MEDS: Linezolid 600 mg/300 ml Premix 600 MG/300 ML RTU IV SCH ×3 (00:09→23:51)
[2016-09-29] MEDS: Albuterol/Ipratropium Neb 3 ML NEB NEB SCH ×4 (01:15→19:27)
[2016-09-29 04:18] LABS: BLOOD UREA NITROGEN 39 MG/DL (9-20); CALCIUM 8.4 MG/DL (8.4-10.2); CALCULATED OSMOLALITY 280 MOs/Kg (270-290); CHLORIDE 92 mEq/L (98-107); GLUCOSE 256 MG/DL (70-99); SODIUM LEVEL 136 mEq/L (137-146)
[2016-09-29 04:49] LABS: ALLEN'S TEST PASS; BEb 11.5 (+/- 2); TCO2 38.1 MMOL/L (23-27)
[2016-09-29 04:51] LABS: ABG Draw Site Left Radial; BI-PAP 14/8 cm H2O
[2016-09-29] MEDS: PANTOPRAZOLE 40 MG TAB PO SCH (06:14)
[2016-09-29] MEDS: METHYLPREDNISOLONE 125 MG/2 ML VIAL IV SCH ×3 (06:14→20:00)
[2016-09-29] MEDS: REGULAR INSULIN 100 UNITS/ML - 3 ML VIAL SQ SCH ×4 (06:15→23:51)
--- NOTE | 2016-09-29 07:18 | DIRPT ---
CLINICAL DATA: Respiratory failure. EXAM: PORTABLE CHEST 1 VIEW COMPARISON: 09/27/2016 FINDINGS: Mild hyperinflation of the lungs/ COPD. Mild peribronchial thickening. Heart is normal size. No confluent opacities or effusions. No acute bony abnormality. IMPRESSION: Mild COPD/bronchitic changes. Electronically Signed By: Naveen Gomes M.D. On: 09/29/2016 07:15
[2016-09-29] MEDS: FLUTICASONE/SALMETEROL 500/50 DISKUS INH SCH ×2 (07:30→19:29)
[2016-09-29] MEDS: MUPIROCIN 2% OINT 22 GM TUBE NAS SCH ×2 (08:19→20:00)
[2016-09-29] MEDS: FUROSEMIDE 40 MG/4 ML VIAL IV SCH ×2 (08:19→16:31)
[2016-09-29] MEDS: CHOLECALCIFEROL 1000 UNITS TAB PO SCH (08:20)
[2016-09-29] MEDS: POTASSIUM CHLORIDE 20 MEQ TAB PO SCH (08:20)
[2016-09-29] MEDS: GUAIFENESIN 600 MG LA TAB PO SCH ×2 (08:20→19:59)
[2016-09-29] MEDS: DILTIAZEM HCL 120 MG CAPSULE.CR PO SCH (08:20)
[2016-09-29] MEDS: DRONEDARONE 400 MG TAB PO SCH ×2 (08:20→19:59)
[2016-09-29] MEDS: ALPRAZOLAM 0.5 MG TAB PO PRN ×2 (13:39→22:21)
[2016-09-29] MEDS ORDERED: Medication Special Instructions SCH (14:00)
--- NOTE | 2016-09-29 16:27 | GENMEDPROG ---
Subjective Note: Patient in bed responsive follows commands. Looking down depressed and frustrated. Breathing slowly improving. Ambulated short distance with physical therapy. Coughing producing small amount of sputum no hemoptysis Notes Reviewed: Yes Events from last night noted and discussed with Clinical Staff Current Medication List: Reviewed Currently: Reports: Cough, Wheezing, CARTWRIGHT, SOB, Sputum, Reflux Sx DVT Prophylaxis: Yes - Physical Examination Vital Signs and I&O: Last Vital Signs Temp 97.6 F 09/29/16 15:35 Pulse 89 09/29/16 15:35 Resp 20 09/29/16 15:35 BP 123/58 L 09/29/16 15:35 Pulse Ox 97 09/29/16 15:35 Oxygen Pulse Oxygen Saturation 97 O2 Device Nasal Cannula Oxygen Flow Rate 3.5 Fraction of Inspired Oxygen ( 30 FIO2) Intake & Output 09/26/16 09/27/16 09/28/16 09/29/16 23:59 23:59 23:59 23:59 Intake Total 1142 2165 1747 1167 Output Total 951 2150 1770 775 Balance 191 15 - 392 Patient's weight 71.696 kg 70.364 kg 70.392 kg 71.696 kg General: Alert, Oriented x3, Cooperative, No acute distress HEENT: Normal, PERRLA, EOMI, Anicteric Sclera Neck: Non-tender, Normal Trachea alignment, Limited range of motion, JVD Lymphatics: Normal (no adenopathy) Respiratory: Diminished, Rhonchi, Wheezes Cardiovascular: Regular rate, Normal S1, Normal S2, Murmurs, Irregular GI: Normal bowel sounds, Soft, Non tender, No hepatospenomegaly, No masses Extremities/Musculoskeletal: Edema, Cyanosis, DJD Skin: Warm,Dry and Intact, No rashes, No breakdown, No significant lesion Neurological: Normal speech, Cranial nerves 3-12 NL Psych/Mental Status: Anxious Lab/DI/Studies Reviewed: 09/28/16 03:00 09/29/16 02:45 Last Vital Signs Temp 97.6 F 09/29/16 15:35 Pulse 89 09/29/16 15:35 Resp 20 09/29/16 15:35 BP 123/58 L 09/29/16 15:35 Pulse Ox 97 09/29/16 15:35 - Assessment (1) Acute respiratory failure with hypoxia Acute J96.01 - ACUTE RESPIRATORY FAILURE WITH HYPOXIA Comment/Plan: Very slow clinical improvement on maximal pulmonary therapy. Continue O2 nebs pulmonary toilet continue BiPAP HS. Chest x-ray from today showed improvement in aeration, COPD/bronchitic changes (2) Bacterial pneumonia Acute J15.9 - UNSPECIFIED BACTERIAL PNEUMONIA Comment/Plan: Continue continue broad-spectrum antibiotics in the form of Levaquin Rocephin and Zyvox. Continue aggressive pulmonary toileting and mucolytics (3) COPD exacerbation Acute J44.1 - CHRONIC OBSTRUCTIVE PULMONARY DISEASE W (ACUTE) EXACERBATION Comment/Plan: Continue nebulized bronchodilators and IV steroids. Continue mucolytics and aggressive pulmonary toileting. Wean off IV steroids gradually (4) Cardiomyopathy Acute I42.9 - CARDIOMYOPATHY, UNSPECIFIED Qualifiers: Cardiomyopathy type: unspecified Qualified Code(s): I42.9 - Cardiomyopathy , unspecified Comment/Plan: Continue salt restriction, monitor weight and fluid balance. Continue IV Lasix. Seems compensated (5) Sepsis Resolved A41.9 - SEPSIS, UNSPECIFIED ORGANISM Qualifiers: Sepsis type: sepsis due to unspecified organism Qualified Code(s): A41.9 - Sepsis, unspecified organism Comment/Plan: Continue IV antibiotics and IV steroids monitor cultures. Hemodynamically stable. (6) Afib Chronic I48.91 - UNSPECIFIED ATRIAL FIBRILLATION Qualifiers: Atrial fibrillation type: chronic Qualified Code(s): I48.2 - Chronic atrial fibrillation Comment/Plan: Rate controlled on Cardizem and Multaq. Continue anticoagulation. Keep K more than 4 magnesium more than 2 (7) GERD (gastroesophageal reflux disease) Chronic K21.9 - GASTRO-ESOPHAGEAL REFLUX DISEASE WITHOUT ESOPHAGITIS Qualifiers: Esophagitis presence: without esophagitis Qualified Code(s): K21.9 - Gastro -esophageal reflux disease without esophagitis Comment/Plan: Continue with PPI. (8) HTN (hypertension) Chronic I10 - ESSENTIAL (PRIMARY) HYPERTENSION Qualifiers: Hypertension type: essential hypertension Qualified Code(s): I10 - Essential (primary) hypertension Comment/Plan: Continue home meds keep SBP around 140.. (9) Anemia Acute D64.9 - ANEMIA, UNSPECIFIED Qualifiers: Anemia type: unspecified type Iron deficiency anemia type: I Vitamin B12 deficiency anemia type: V Folate deficiency anemia type: F Bone marrow failure anemia type: B Hemolytic anemia type: H Other causes of anemia: O Qualified Code(s): D64.9 - Anemia, unspecified Comment/Plan: Monitor counts (10) Physical debility Acute R53.81 - OTHER MALAISE Comment/Plan: Increase activity. Out of bed to chair. PTOT to see. Case Care Discussed with: Patient, Consultants, Family, Nursing Staff Education/Counseling Given To: Patient Education/Counseling Given Regarding: Diagnosis, Treatment, Prognosis, Follow Up Total Time: 45 min . Critical Care: No Code: 69167 (12+)
[2016-09-29] MEDS: CEFTRIAXONE 1 GM in D5W 100 ML IV SCH (16:31)
[2016-09-29] MEDS: RIVAROXABAN 10 MG TAB PO SCH (16:32)
[2016-09-29] MEDS: MONTELUKAST SODIUM 10 MG TAB PO SCH (19:59)
[2016-09-29] MEDS: Levofloxacin 750 mg/150 ml D5W 750 MG/150 ML RTU IV SCH (20:00)
[2016-09-29] MEDS: SENNA CONCENTRATE TAB PO SCH (20:00)
[2016-09-29] MEDS: PEG-ELECTROLYTE 17 GM PACK PO SCH (20:00)
[2016-09-30] MEDS: Albuterol/Ipratropium Neb 3 ML NEB NEB SCH ×4 (01:36→19:32)
[2016-09-30] MEDS: METHYLPREDNISOLONE 125 MG/2 ML VIAL IV SCH ×2 (04:21→12:09)
[2016-09-30] MEDS: PANTOPRAZOLE 40 MG TAB PO SCH (04:22)
[2016-09-30] MEDS: REGULAR INSULIN 100 UNITS/ML - 3 ML VIAL SQ SCH ×4 (05:28→22:20)
[2016-09-30] MEDS: FLUTICASONE/SALMETEROL 500/50 DISKUS INH SCH ×3 (08:44→19:40)
[2016-09-30] MEDS: DILTIAZEM HCL 120 MG CAPSULE.CR PO SCH (09:22)
[2016-09-30] MEDS: POTASSIUM CHLORIDE 20 MEQ TAB PO SCH (09:23)
[2016-09-30] MEDS: GUAIFENESIN 600 MG LA TAB PO SCH ×2 (09:23→22:18)
[2016-09-30] MEDS: DRONEDARONE 400 MG TAB PO SCH ×2 (09:23→22:19)
[2016-09-30] MEDS: FUROSEMIDE 40 MG/4 ML VIAL IV SCH ×2 (09:24→14:51)
--- NOTE | 2016-09-30 09:39 | PCM.PULM ---
Chief Complaint: Patient in bed not feeling too well today. Feeling weak, breathing is slowly improving and on oxygen and BIPAP at night Current complaints:SOB,CARTWRIGHT,cough,sputum,wheeze, fatigue. No chest pain reported Current medication list and notes reviewed:yes, Events from last night noted and discussed with Clinical Staff DVT/GI prophylaxis:yes - Physical Examination Vital Signs and I&O: Last Vital Signs Temp 97.7 F 09/30/16 07:35 Pulse 92 09/30/16 07:35 Resp 18 09/30/16 07:35 BP 131/79 09/30/16 07:35 Pulse Ox 99 09/30/16 08:45 Oxygen Pulse Oxygen Saturation 99 O2 Device Nasal Cannula Oxygen Flow Rate 3.5 Fraction of Inspired Oxygen ( 30 FIO2) Intake & Output 09/27/16 09/28/16 09/29/16 09/30/16 23:59 23:59 23:59 23:59 Intake Total 2165 1747 2157 802 Output Total 2150 1770 1600 300 Balance 557 502 Patient's weight 70.364 kg 70.392 kg 71.696 kg 72.121 kg General: Alert, Oriented x3, Cooperative, No acute distress, Weakness, Fatigue Respiratory: Diminished (bilaterally), Wheezes (mild) Cardiovascular: Normal S1, No Gallops,Rubs/Murmurs, Normal S2, Good Pedal Pulses (Dp pulses 2+ bilaterally), Irregular GI: Normal bowel sounds, Soft, Non tender, No hepatospenomegaly, No masses, Obese Extremities/Musculoskeletal: Normal pulses, Edema (BLEs 1+ noted) Skin: Warm,Dry and Intact, No rashes, No breakdown, No significant lesion Neurological: Normal Steady Gait, Normal speech, Strength at 5/5 X4 ext, Normal tone, Cranial nerves 3-12 NL Psych/Mental Status: Appropriate, Anxious Result Diagrams: 09/28/16 03:00 09/29/16 02:45 Labs (last 24 hours): Laboratory Results - last 24 hr 09/30/16 04:23 POC Capillary Glucose 286 H Lab/DI/Studies Reviewed: EKG: NSR, NO ST or ST wave changes noted Medications Albuterol/Ipratropium (Duoneb) 3 ml NEB Q2H PRN PRN Reason: Wheezing Stop: 10/08/16 16:59 Morphine Sulfate (Morphine Sulfate) 10 mg NEB RTQ8 PRN PRN Reason: Air Hunger Stop: 10/01/16 17:02 Fluticasone/Salmeterol (Advair 500/50) 1 puff INH BID [facility] Stop: 10/09/16 08:59 Last Admin: 09/25/16 09:12 Dose: 1 puff Sodium Chloride (Normal Saline) 1,000 mls @ 20 mls/hr IV Q48H [facility] Stop: 10/08/16 16:59 Last Admin: 09/24/16 18:24 Dose: Not Given Albuterol/Ipratropium (Duoneb) 3 ml NEB RTQ6 [facility] Stop: 10/08/16 16:59 Last Admin: 09/25/16 09:11 Dose: 3 ml Alprazolam (Xanax) 0.5 mg PO TID PRN PRN Reason: Anxiety Stop: 10/08/16 16:52 Ceftriaxone Sodium 1 gm/ (Dextrose) 100 mls @ 200 mls/hr IV Q24H [facility] Stop: 10/01/16 17:59 Last Admin: 09/24/16 18:24 Dose: 200 mls/hr Dronedarone (Multaq) 400 mg PO BID [facility] Stop: 10/08/16 20:59 Last Admin: 09/25/16 08:39 Dose: 400 mg Furosemide (Lasix) 40 mg IV LASBID [facility] Stop: 10/09/16 16:59 Last Admin: 09/25/16 08:39 Dose: 40 mg Guaifenesin (Mucinex) 1,200 mg PO BID [facility] Stop: 10/08/16 20:59 Last Admin: 09/25/16 08:39 Dose: 1,200 mg Insulin Human Regular (Humulin R) 0 units SQ Q6 SHE[facility]BI PRN Reason: Protocol Stop: 10/08/16 16:59 Last Admin: 09/25/16 06:40 Dose: Not Given Levofloxacin/Dextrose (Levaquin 750 Mg) 750 mg in 150 mls @ 100 mls/hr IV Q24H [facility] Stop: 10/02/16 19:59 Lorazepam (Ativan) 1 mg IV Q4H PRN PRN Reason: Anxiety/Agitation Stop: 10/08/16 21:42 Last Admin: 09/24/16 22:01 Dose: 1 mg Montelukast Sodium (Singulair) 10 mg PO HS [facility] Stop: 10/08/16 20:59 Last Admin: 09/24/16 22:04 Dose: Not Given Morphine Sulfate (Morphine Sulfate) 3 mg IV Q2H PRN PRN Reason: Pain-NPO/PO Med Not Effective Stop: 10/01/16 16:59 Last Admin: 09/24/16 22:02 Dose: 3 mg Pantoprazole Sodium (Protonix) 40 mg PO 0600 [facility] Stop: 10/08/16 16:59 Last Admin: 09/25/16 06:40 Dose: Not Given Rivaroxaban (Xarelto) 20 mg PO 1800 [facility] Stop: 10/09/16 17:59 Methylprednisolone Sodium Succinate (Solu-Medrol) 60 mg IV Q8H [facility] Stop: 10/11/16 11:59 Linezolid (Zyvox 600 Mg/300 Ml Premix) 600 mg in 300 mls @ 150 mls/hr IV Q12H [facility] Stop: 10/03/16 23:59 Last Admin: 09/30/16 12:09 Dose: 150 mls/hr Diltiazem HCl (Cardizem Cd) 120 mg PO DAILY [facility] Stop: 10/09/16 08:59 Last Admin: 09/30/16 09:22 Dose: 120 mg - Assessment/Plan (1) Acute respiratory failure with hypoxia Acute J96.01 - ACUTE RESPIRATORY FAILURE WITH HYPOXIA Comment/Plan: Patient is improving slowly continues to be on Rocephin Levaquin and linezolid at this time would continue nebulizers DVT and GI prophylaxis and other supportive care I would follow the patient closely while after a chest x-ray tomorrow along with a blood gas prognosis is guarded would follow the patient closely for development of complications her MRSA PCR is positive and therefore I would continue linezolid at this time patient may be able to get better in the next few days hopefully (2) COPD exacerbation Acute J44.1 - CHRONIC OBSTRUCTIVE PULMONARY DISEASE W (ACUTE) EXACERBATION Comment/Plan: Patient Solu-Medrol 40 mg IV q.8 hours I would continue the current supportive care including Continue steroids DVT and GI prophylaxis nebulizers and oxygen use BiPAP as needed and keep the pulse ox between 88 and 92% (3) Sepsis Resolved A41.9 - SEPSIS, UNSPECIFIED ORGANISM sepsis due to unspecified organism A41.9 - Sepsis, unspecified organism Comment/Plan: I would continue linezolid at this time and would follow the patient closely along with Levaquin and Rocephin (4) Afib Chronic I48.91 - UNSPECIFIED ATRIAL FIBRILLATION chronic I48.2 - Chronic atrial fibrillation Comment/Plan: Stable at this time
[2016-09-30] MEDS: Linezolid 600 mg/300 ml Premix 600 MG/300 ML RTU IV SCH (12:09)
[2016-09-30] MEDS: CHOLECALCIFEROL 1000 UNITS TAB PO SCH (12:09)
--- NOTE | 2016-09-30 12:42 | GENMEDPROG ---
Chief Complaint: ACUTE RESP FAILURE, SEPSIS, COPD EXAC, PNEUMONIA, CARDIOMYOPATHY Subjective Note: REMAINS VERY WEAK, LABORED RESPIRATIONS Currently: Reports: Cough, Wheezing, CARTWRIGHT, SOB, Sputum, Reflux Sx DVT Prophylaxis: Yes - Physical Examination Vital Signs and I&O: Last Vital Signs Temp 98.3 F 09/30/16 11:38 Pulse 88 09/30/16 12:00 Resp 19 09/30/16 11:38 BP 141/71 09/30/16 11:38 Pulse Ox 100 09/30/16 11:38 Oxygen Pulse Oxygen Saturation 100 O2 Device Nasal Cannula Oxygen Flow Rate 3.5 Fraction of Inspired Oxygen ( 30 FIO2) Intake & Output 09/27/16 09/28/16 09/29/16 09/30/16 23:59 23:59 23:59 23:59 Intake Total 2165 1747 2157 802 Output Total 2150 1770 1600 500 Balance 557 302 Patient's weight 70.364 kg 70.392 kg 71.696 kg 72.121 kg General: Alert, Oriented x3, Cooperative, Mild distress, Weakness, Fatigue HEENT: Normal, PERRLA, EOMI, Anicteric Sclera Neck: Non-tender, Normal Trachea alignment, Limited range of motion, JVD Lymphatics: Normal (no adenopathy) Respiratory: Diminished, Rhonchi, Wheezes Cardiovascular: Regular rate, Normal S1, Normal S2, Murmurs, Irregular GI: Normal bowel sounds, Soft, Non tender, No hepatospenomegaly, No masses Extremities/Musculoskeletal: Edema, Cyanosis, DJD Skin: Warm,Dry and Intact, No rashes, No breakdown, No significant lesion Neurological: Normal speech, Cranial nerves 3-12 NL Psych/Mental Status: Anxious - Assessment (1) Sepsis Resolved A41.9 - SEPSIS, UNSPECIFIED ORGANISM Qualifiers: Sepsis type: sepsis due to unspecified organism Qualified Code(s): A41.9 - Sepsis, unspecified organism Comment/Plan: Continue IV antibiotics and IV steroids monitor cultures. Hemodynamically stable. (2) Acute respiratory failure with hypoxia Acute J96.01 - ACUTE RESPIRATORY FAILURE WITH HYPOXIA Comment/Plan: Very slow clinical improvement on maximal pulmonary therapy. Continue O2 nebs pulmonary toilet continue BiPAP HS. Chest x-ray from today showed improvement in aeration, COPD/bronchitic changes (3) Bacterial pneumonia Acute J15.9 - UNSPECIFIED BACTERIAL PNEUMONIA Comment/Plan: Continue continue broad-spectrum antibiotics in the form of Levaquin Rocephin and Zyvox. Continue aggressive pulmonary toileting and mucolytics (4) COPD exacerbation Acute J44.1 - CHRONIC OBSTRUCTIVE PULMONARY DISEASE W (ACUTE) EXACERBATION Comment/Plan: Continue nebulized bronchodilators and IV steroids. Continue mucolytics and aggressive pulmonary toileting. Wean off IV steroids gradually (5) Physical debility Acute R53.81 - OTHER MALAISE Comment/Plan: Increase activity. Out of bed to chair. PTOT to see. (6) Afib Chronic I48.91 - UNSPECIFIED ATRIAL FIBRILLATION Qualifiers: Atrial fibrillation type: chronic Qualified Code(s): I48.2 - Chronic atrial fibrillation Comment/Plan: Rate controlled on Cardizem and Multaq. Continue anticoagulation. Keep K more than 4 magnesium more than 2 (7) Systolic congestive heart failure Chronic I50.20 - UNSPECIFIED SYSTOLIC (CONGESTIVE) HEART FAILURE Qualifiers: Congestive heart failure chronicity: chronic Qualified Code(s): I50.22 - Chronic systolic (congestive) heart failure Comment/Plan: Echocardiogram April of last year showed ejection fraction between 35-40% and patient getting intravenous Lasix daily. BNP is still mildly elevated. (8) Cardiomyopathy Acute I42.9 - CARDIOMYOPATHY, UNSPECIFIED Qualifiers: Cardiomyopathy type: unspecified Qualified Code(s): I42.9 - Cardiomyopathy , unspecified Comment/Plan: Continue salt restriction, monitor weight and fluid balance. Continue IV Lasix. Seems compensated
[2016-09-30] MEDS: ALPRAZOLAM 0.5 MG TAB PO PRN ×2 (14:51→22:18)
[2016-09-30] MEDS: RIVAROXABAN 10 MG TAB PO SCH (17:25)
[2016-09-30] MEDS: CEFTRIAXONE 1 GM in D5W 100 ML IV SCH (17:25)
[2016-09-30] MEDS: NS 1,000 ML IV SCH (17:25)
[2016-09-30] MEDS: Levofloxacin 750 mg/150 ml D5W 750 MG/150 ML RTU IV SCH (21:17)
[2016-09-30] MEDS: METHYLPREDNISOLONE 40 MG/1 ML VIAL IV SCH (21:18)
[2016-09-30] MEDS: MONTELUKAST SODIUM 10 MG TAB PO SCH (22:19)
[2016-09-30] MEDS: SENNA CONCENTRATE TAB PO SCH (22:19)
[2016-09-30] MEDS: PEG-ELECTROLYTE 17 GM PACK PO SCH (22:19)
[2016-10-01] MEDS: Linezolid 600 mg/300 ml Premix 600 MG/300 ML RTU IV SCH ×2 (00:47→11:58)
[2016-10-01] MEDS: Albuterol/Ipratropium Neb 3 ML NEB NEB SCH ×4 (01:29→19:22)
[2016-10-01] MEDS: METHYLPREDNISOLONE 40 MG/1 ML VIAL IV SCH ×3 (04:41→21:58)
[2016-10-01] MEDS: PANTOPRAZOLE 40 MG TAB PO SCH (04:42)
[2016-10-01] MEDS: NS 1,000 ML IV SCH (05:04)
[2016-10-01 05:22] LABS: ALLEN'S TEST PASS; BEb 12.4 (+/- 2); TCO2 39.6 MMOL/L (23-27)
[2016-10-01 05:24] LABS: ABG Draw Site Right Radial; BI-PAP 14/8 cm H2O
[2016-10-01] MEDS: REGULAR INSULIN 100 UNITS/ML - 3 ML VIAL SQ SCH ×3 (06:20→18:04)
--- NOTE | 2016-10-01 07:39 | DIRPT ---
CLINICAL DATA: Respiratory failure EXAM: PORTABLE CHEST 1 VIEW COMPARISON: Portable chest x-ray of September 29, 2016 FINDINGS: The lungs are mildly hyperinflated. There is no focal infiltrate. The interstitial markings on the left remain coarse. There is irregular density in the left pulmonary apex which is unchanged as far back as December 28, 2015. There is no pleural effusion. The heart and pulmonary vascularity are normal. IMPRESSION: COPD. Persistently increased interstitial markings throughout much of the left lung is most compatible with acute on chronic bronchitic change. Electronically Signed By: Colin Kasper M.D. On: 10/01/2016 07:36
[2016-10-01] MEDS: FLUTICASONE/SALMETEROL 500/50 DISKUS INH SCH ×2 (07:47→19:22)
[2016-10-01] MEDS: DRONEDARONE 400 MG TAB PO SCH ×2 (08:10→21:59)
[2016-10-01] MEDS: DILTIAZEM HCL 120 MG CAPSULE.CR PO SCH (08:10)
[2016-10-01] MEDS: FUROSEMIDE 40 MG/4 ML VIAL IV SCH ×2 (08:11→18:04)
[2016-10-01] MEDS: POTASSIUM CHLORIDE 20 MEQ TAB PO SCH (08:11)
[2016-10-01] MEDS: GUAIFENESIN 600 MG LA TAB PO SCH ×2 (08:11→21:59)
--- NOTE | 2016-10-01 08:17 | PCM.PULM ---
Chief Complaint: Patient in bed alert and responsive complaints of dyspnea, weakness, cough, wheeze, anxious. Denies chest pain Current medication list reviewed:yes Notes reviewed:yes GI/DVT prophylaxis:yes - Physical Examination Vital Signs and I&O: Last Vital Signs Temp 97.5 F 10/01/16 04:42 Pulse 84 10/01/16 07:48 Resp 18 10/01/16 07:48 BP 157/69 10/01/16 04:42 Pulse Ox 96 10/01/16 07:48 Oxygen Pulse Oxygen Saturation 96 O2 Device Nasal Cannula Oxygen Flow Rate 3.5 Fraction of Inspired Oxygen ( 30 FIO2) Intake & Output 09/28/16 09/29/16 09/30/16 10/01/16 23:59 23:59 23:59 23:59 Intake Total 1747 2157 1673 726 Output Total 1770 1600 1275 250 Balance -23 557 398 476 Patient's weight 70.392 kg 71.696 kg 72.121 kg 71.169 kg General: Alert, Oriented x3, No acute distress, Weakness, Fatigue Respiratory: Diminished (bilaterally), Wheezes Cardiovascular: Normal S1, No Gallops,Rubs/Murmurs, Normal S2, Irregular GI: Normal bowel sounds, Soft, Non tender, No hepatospenomegaly, No masses, Obese Extremities/Musculoskeletal: Normal pulses, Swelling (1+ BLEs) Skin: Warm,Dry and Intact, No rashes, No breakdown, No significant lesion Neurological: Normal Steady Gait, Normal speech, Strength at 5/5 X4 ext, Cranial nerves 3-12 NL Psych/Mental Status: Appropriate, Cooperative, Anxious Result Diagrams: 09/28/16 03:00 09/29/16 02:45 Labs (last 24 hours): Laboratory Results - last 24 hr 10/01/16 10/01/16 04:47 05:15 Puncture Site Right radial pH 7.480 H pCO2 51.0 H pO2 78.0 L HCO3 38.0 H Total CO2 39.6 H Base Excess 12.4 H FiO2 % 30 Mode BiPAP 14/8 Specimen [facility] POC Capillary Glucose 243 H Lab/DI/Studies Reviewed: EKG: NSR, NO ST or ST wave changes noted Cxray: 1 view Chest x-ray was seen personally patient has hyperinflated lung walking with peribronchial cuffing Medications Albuterol/Ipratropium (Duoneb) 3 ml NEB Q2H PRN PRN Reason: Wheezing Stop: 10/08/16 16:59 Fluticasone/Salmeterol (Advair 500/50) 1 puff INH BID [facility] Stop: 10/09/16 08:59 Last Admin: 09/25/16 09:12 Dose: 1 puff Albuterol/Ipratropium (Duoneb) 3 ml NEB RTQ6 [facility] Stop: 10/08/16 16:59 Last Admin: 09/25/16 09:11 Dose: 3 ml Alprazolam (Xanax) 0.5 mg PO TID PRN PRN Reason: Anxiety Stop: 10/08/16 16:52 Ceftriaxone Sodium 1 gm/ (Dextrose) 100 mls @ 200 mls/hr IV Q24H [facility] Stop: 10/01/16 17:59 Last Admin: 09/24/16 18:24 Dose: 200 mls/hr Dronedarone (Multaq) 400 mg PO BID [facility] Stop: 10/08/16 20:59 Last Admin: 09/25/16 08:39 Dose: 400 mg Sodium Chloride (Normal Saline) 1,000 mls @ 20 mls/hr IV Q48H [facility] Stop: 10/08/16 16:59 Last Admin: 09/27/16 00:49 Dose: 20 mls/hr Guaifenesin (Mucinex) 1,200 mg PO BID [facility] Stop: 10/08/16 20:59 Last Admin: 09/25/16 08:39 Dose: 1,200 mg Insulin Human Regular (Humulin R) 0 units SQ Q6 SHELBI PRN Reason: Protocol Stop: 10/08/16 16:59 Last Admin: 09/25/16 06:40 Dose: Not Given Montelukast Sodium (Singulair) 10 mg PO HS [facility] Stop: 10/08/16 20:59 Last Admin: 09/24/16 22:04 Dose: Not Given Morphine Sulfate (Morphine Sulfate) 3 mg IV Q2H PRN PRN Reason: Pain-NPO/PO Med Not Effective Stop: 10/01/16 16:59 Last Admin: 09/24/16 22:02 Dose: 3 mg Pantoprazole Sodium (Protonix) 40 mg PO 0600 [facility] Stop: 10/08/16 16:59 Last Admin: 09/25/16 06:40 Dose: Not Given Mupirocin (Bactroban) 1 gm IRWIN BID Stop: 09/25/16 09:30 Rivaroxaban (Xarelto) 20 mg PO 1800 [facility] Stop: 10/09/16 17:59 Levofloxacin/Dextrose (Levaquin 750 Mg) 750 mg in 150 mls @ 100 mls/hr IV Q24H [facility] Stop: 10/02/16 19:59 Last Admin: 09/29/16 20:00 Dose: 100 mls/hr Linezolid (Zyvox 600 Mg/300 Ml Premix) 600 mg in 300 mls @ 150 mls/hr IV Q12H [facility] Stop: 10/03/16 23:59 Last Admin: 09/30/16 12:09 Dose: 150 mls/hr Diltiazem HCl (Cardizem Cd) 120 mg PO DAILY [facility] Stop: 10/09/16 08:59 Last Admin: 09/30/16 09:22 Dose: 120 mg Methylprednisolone Sodium Succinate (Solu-Medrol) 40 mg IV Q8H [facility] Stop: 10/14/16 19:59 Last Admin: 10/01/16 11:58 Dose: 40 mg Furosemide (Lasix) 40 mg IV LASBID [facility] Stop: 10/12/16 15:59 Last Admin: 10/01/16 08:11 Dose: 40 mg Lorazepam (Ativan) 1 mg IV Q4H PRN PRN Reason: Anxiety/Agitation-ALT Stop: 10/08/16 21:42 Last Admin: 09/28/16 22:32 Dose: 1 mg - Assessment/Plan (1) Acute respiratory failure with hypoxia Acute J96.01 - ACUTE RESPIRATORY FAILURE WITH HYPOXIA Comment/Plan: I would continue the current supportive care on this patient he is improving very slowly with Rocephin and Levaquin and also is on linezolid. Continue DVT and GI prophylaxis nebulizers oxygen and other supportive care prognosis is guarded I would order another CT scan on this patient as he had is some element of pulmonary fibrosis when he had a CT scan done a year ago (2) COPD exacerbation Acute J44.1 - CHRONIC OBSTRUCTIVE PULMONARY DISEASE W (ACUTE) EXACERBATION Comment/Plan: Patient Solu-Medrol 40 mg IV q.8 hours I would continue the current supportive care including Continue steroids DVT and GI prophylaxis nebulizers and oxygen use BiPAP as needed and keep the pulse ox between 88 and 92% (3) Sepsis Resolved A41.9 - SEPSIS, UNSPECIFIED ORGANISM sepsis due to unspecified organism A41.9 - Sepsis, unspecified organism Comment/Plan: Continue the current supportive care including antibiotics and nebulizers (4) Afib Chronic I48.91 - UNSPECIFIED ATRIAL FIBRILLATION chronic I48.2 - Chronic atrial fibrillation Comment/Plan: Stable at this time I personally saw and evaluated the patient.: Yes Case Care Discussed with: Patient Education/Counseling Given To: Patient Education/Counseling Given Regarding: Diagnosis, Treatment, Prognosis, Disposition Plan
[2016-10-01] MEDS: ALPRAZOLAM 0.5 MG TAB PO PRN ×2 (08:31→22:00)
[2016-10-01] MEDS: CHOLECALCIFEROL 1000 UNITS TAB PO SCH (11:58)
[2016-10-01] MEDS: LORAZEPAM 2 MG/ML VIAL IV PRN (14:39)
[2016-10-01 15:35] VITALS: BMI 23.8
[2016-10-01] MEDS ORDERED: Medication Special Instructions SCH (16:00)
[2016-10-01] MEDS: RIVAROXABAN 10 MG TAB PO SCH (18:05)
[2016-10-01] MEDS: CEFTRIAXONE 1 GM in D5W 100 ML IV SCH (18:05)
--- NOTE | 2016-10-01 19:15 | GENMEDPROG ---
[id number] Wheezing, CARTWRIGHT, SOB, Sputum, Reflux Sx DVT Prophylaxis: Yes - Physical Examination Vital Signs and I&O: Last Vital Signs Temp 98.0 F 10/01/16 15:34 Pulse 83 10/01/16 16:00 Resp 22 10/01/16 15:34 BP 160/80 10/01/16 15:34 Pulse Ox 100 10/01/16 15:34 Oxygen Pulse Oxygen Saturation 100 O2 Device Nasal Cannula Oxygen Flow Rate 3.5 Fraction of Inspired Oxygen ( 30 FIO2) Intake & Output 09/28/16 09/29/16 09/30/16 10/01/16 23:59 23:59 23:59 23:59 Intake Total 1747 2157 1673 1206 Output Total 1770 1600 1275 950 Balance -23 557 398 256 Patient's weight 70.392 kg 71.696 kg 72.121 kg 71.169 kg General: Alert, Oriented x3, Cooperative, Mild distress, Weakness, Fatigue HEENT: Normal, PERRLA, EOMI, Anicteric Sclera Neck: Non-tender, Normal Trachea alignment, Limited range of motion, JVD Lymphatics: Normal (no adenopathy) Respiratory: Diminished, Rhonchi, Wheezes Cardiovascular: Regular rate, Normal S1, Normal S2, Murmurs, Irregular GI: Normal bowel sounds, Soft, Non tender, No hepatospenomegaly, No masses Extremities/Musculoskeletal: Edema, Cyanosis, DJD Skin: Warm,Dry and Intact, No rashes, No breakdown, No significant lesion Neurological: Normal speech, Cranial nerves 3-12 NL Psych/Mental Status: Anxious - Assessment (1) Sepsis Resolved A41.9 - SEPSIS, UNSPECIFIED ORGANISM Qualifiers: Sepsis type: sepsis due to unspecified organism Qualified Code(s): A41.9 - Sepsis, unspecified organism Comment/Plan: Continue IV antibiotics and IV steroids monitor cultures. Hemodynamically stable. (2) Acute respiratory failure with hypoxia Acute J96.01 - ACUTE RESPIRATORY FAILURE WITH HYPOXIA Comment/Plan: Very slow clinical improvement on maximal pulmonary therapy. Continue O2 nebs pulmonary toilet continue BiPAP HS. Chest x-ray from today showed improvement in aeration, COPD/bronchitic changes (3) Bacterial pneumonia Acute J15.9 - UNSPECIFIED BACTERIAL PNEUMONIA Comment/Plan: Continue continue broad-spectrum antibiotics in the form of Levaquin Rocephin and Zyvox. Continue aggressive pulmonary toileting and mucolytics (4) COPD exacerbation Acute J44.1 - CHRONIC OBSTRUCTIVE PULMONARY DISEASE W (ACUTE) EXACERBATION Comment/Plan: Continue nebulized bronchodilators and IV steroids. Continue mucolytics and aggressive pulmonary toileting. Wean off IV steroids gradually (5) Physical debility Acute R53.81 - OTHER MALAISE Comment/Plan: Increase activity. Out of bed to chair. PTOT to see. (6) Afib Chronic I48.91 - UNSPECIFIED ATRIAL FIBRILLATION Qualifiers: Atrial fibrillation type: chronic Qualified Code(s): I48.2 - Chronic atrial fibrillation Comment/Plan: Rate controlled on Cardizem and Multaq. Continue anticoagulation. Keep K more than 4 magnesium more than 2 (7) Systolic congestive heart failure Chronic I50.20 - UNSPECIFIED SYSTOLIC (CONGESTIVE) HEART FAILURE Qualifiers: Congestive heart failure chronicity: chronic Qualified Code(s): I50.22 - Chronic systolic (congestive) heart failure Comment/Plan: Echocardiogram April of last year showed ejection fraction between 35-40% and patient getting intravenous Lasix daily. BNP is still mildly elevated. (8) Cardiomyopathy Acute I42.9 - CARDIOMYOPATHY, UNSPECIFIED Qualifiers: Cardiomyopathy type: unspecified Qualified Code(s): I42.9 - Cardiomyopathy , unspecified Comment/Plan: Continue salt restriction, monitor weight and fluid balance. Continue IV Lasix. Seems compensated - Plan patient is very weak, encouraged patient to consider rehab in SNF. He is considering it. Case Care Discussed with: Patient, Nursing Staff, Resource Management Education/Counseling Given To: Patient Education/Counseling Given Regarding: Diagnosis, Treatment, Prognosis Total Time: 25 min Critical Care: No Couseling Time (>50% in counseling/coordination): Yes Code: 83605 (12+)
[2016-10-01] MEDS: Levofloxacin 750 mg/150 ml D5W 750 MG/150 ML RTU IV SCH (21:58)
[2016-10-01] MEDS: PEG-ELECTROLYTE 17 GM PACK PO SCH ×2 (21:59→22:08)
[2016-10-01] MEDS: SENNA CONCENTRATE TAB PO SCH (21:59)
[2016-10-01] MEDS: MONTELUKAST SODIUM 10 MG TAB PO SCH (22:00)
[2016-10-02] MEDS: Linezolid 600 mg/300 ml Premix 600 MG/300 ML RTU IV SCH ×3 (00:31→23:31)
[2016-10-02] MEDS: REGULAR INSULIN 100 UNITS/ML - 3 ML VIAL SQ SCH ×5 (00:31→23:42)
[2016-10-02] MEDS: Albuterol/Ipratropium Neb 3 ML NEB NEB SCH ×4 (01:31→19:40)
[2016-10-02] MEDS: METHYLPREDNISOLONE 40 MG/1 ML VIAL IV SCH ×3 (03:45→20:40)
[2016-10-02] MEDS: PANTOPRAZOLE 40 MG TAB PO SCH (05:43)
[2016-10-02] MEDS: ALPRAZOLAM 0.5 MG TAB PO PRN ×2 (05:53→16:05)
--- NOTE | 2016-10-02 08:03 | PCM.PULM ---
Chief Complaint: Respiratory failure acute on chronic with hypoxia Sepsis Atrial fibrillation COPD exacerbation Patient is still short of breath at this time. [facility] overnight Medication list and notes reviewed:yes, Events from last night noted and discussed with Clinical Staff DVT prophylaxis:yes - Physical Examination Vital Signs and I&O: Last Vital Signs Temp 97.9 F 10/02/16 04:10 Pulse 87 10/02/16 07:21 Resp 18 10/02/16 07:21 BP 146/72 10/02/16 07:21 Pulse Ox 96 10/02/16 07:21 Oxygen Pulse Oxygen Saturation 96 O2 Device Nasal Cannula Oxygen Flow Rate 3.5 Fraction of Inspired Oxygen ( 30 FIO2) Intake & Output 09/29/16 09/30/16 10/01/16 10/02/16 23:59 23:59 23:59 23:59 Intake Total 2157 1673 1206 200 Output Total 1600 1275 950 400 Balance 557 398 256 -200 Patient's weight 71.696 kg 72.121 kg 71.169 kg 71.758 kg General: Alert, Oriented x3, Cooperative, No acute distress, Fatigue Respiratory: Diminished, Wheezes Cardiovascular: Normal S1, No Gallops,Rubs/Murmurs, Normal S2, Irregular GI: Normal bowel sounds, Soft, Non tender, No masses, Obese Extremities/Musculoskeletal: Normal pulses, Edema (1+BLEs) Skin: Warm,Dry and Intact, No rashes, No breakdown, No significant lesion Neurological: Normal Steady Gait, Normal speech, Strength at 5/5 X4 ext, Normal tone, Cranial nerves 3-12 NL Psych/Mental Status: Normal Affect, Cooperative, Anxious Result Diagrams: 09/28/16 03:00 09/29/16 02:45 Labs (last 24 hours): Laboratory Results - last 24 hr 10/02/16 05:17 POC Capillary Glucose 266 H Lab/DI/Studies Reviewed: EKG: NSR, NO ST or ST wave changes noted CT CHEST WITHOUT CONTRAST: CT scan of the chest was seen personally patient seems to have significant emphysema along with left upper lobe nodule 20 x 17 mm in size which is spiculated and is concerning for malignancy patient had that nodule about 8 months ago however it was smaller in size. He also has right middle lobe nodule which is much smaller. In significant mediastinal adenopathy was noted along with a atherosclerosis. Medications Albuterol/Ipratropium (Duoneb) 3 ml NEB Q2H PRN PRN Reason: Wheezing Stop: 10/08/16 16:59 Fluticasone/Salmeterol (Advair 500/50) 1 puff INH BID [facility] Stop: 10/09/16 08:59 Last Admin: 09/25/16 09:12 Dose: 1 puff Albuterol/Ipratropium (Duoneb) 3 ml NEB RTQ6 [facility] Stop: 10/08/16 16:59 Last Admin: 09/25/16 09:11 Dose: 3 ml Alprazolam (Xanax) 0.5 mg PO TID PRN PRN Reason: Anxiety Stop: 10/08/16 16:52 Ceftriaxone Sodium 1 gm/ (Dextrose) 100 mls @ 200 mls/hr IV Q24H [facility] Stop: 10/01/16 17:59 Last Admin: 09/24/16 18:24 Dose: 200 mls/hr Dronedarone (Multaq) 400 mg PO BID [facility] Stop: 10/08/16 20:59 Last Admin: 09/25/16 08:39 Dose: 400 mg Sodium Chloride (Normal Saline) 1,000 mls @ 20 mls/hr IV Q48H [facility] Stop: 10/08/16 16:59 Last Admin: 09/27/16 00:49 Dose: 20 mls/hr Guaifenesin (Mucinex) 1,200 mg PO BID [facility] Stop: 10/08/16 20:59 Last Admin: 09/25/16 08:39 Dose: 1,200 mg Insulin Human Regular (Humulin R) 0 units SQ Q6 [facility] PRN Reason: Protocol Stop: 10/08/16 16:59 Last Admin: 09/25/16 06:40 Dose: Not Given Montelukast Sodium (Singulair) 10 mg PO HS [facility] Stop: 10/08/16 20:59 Last Admin: 09/24/16 22:04 Dose: Not Given Rivaroxaban (Xarelto) 20 mg PO 1800 [facility] Stop: 10/09/16 17:59 Levofloxacin/Dextrose (Levaquin 750 Mg) 750 mg in 150 mls @ 100 mls/hr IV Q24H [facility] Stop: 10/02/16 19:59 Last Admin: 09/29/16 20:00 Dose: 100 mls/hr Linezolid (Zyvox 600 Mg/300 Ml Premix) 600 mg in 300 mls @ 150 mls/hr IV Q12H [facility] Stop: 10/03/16 23:59 Last Admin: 09/30/16 12:09 Dose: 150 mls/hr Diltiazem HCl (Cardizem Cd) 120 mg PO DAILY [facility] Stop: 10/09/16 08:59 Last Admin: 09/30/16 09:22 Dose: 120 mg Methylprednisolone Sodium Succinate (Solu-Medrol) 40 mg IV Q8H [facility] Stop: 10/14/16 19:59 Last Admin: 10/01/16 11:58 Dose: 40 mg Furosemide (Lasix) 40 mg IV LASBID [facility] Stop: 10/12/16 15:59 Last Admin: 10/01/16 08:11 Dose: 40 mg Lorazepam (Ativan) 1 mg IV Q4H PRN PRN Reason: Anxiety/Agitation-ALT Stop: 10/08/16 21:42 Last Admin: 09/28/16 22:32 Dose: 1 mg - Assessment/Plan (1) Acute respiratory failure with hypoxia Acute J96.01 - ACUTE RESPIRATORY FAILURE WITH HYPOXIA Comment/Plan: Patient remains on Solu-Medrol 40 mg IV q.8 hours along with Zyvox Rocephin and Levaquin cultures have been negative I would go ahead and stop the Rocephin at this time continue other supportive care with nebulizers DVT and GI prophylaxis and other supportive care CT scan of the chest reveals no pulmonary fibrosis however significant emphysema was noted along with a lung mass (2) COPD exacerbation Acute J44.1 - CHRONIC OBSTRUCTIVE PULMONARY DISEASE W (ACUTE) EXACERBATION Comment/Plan: Patient Solu-Medrol 40 mg IV q.8 hours I would continue the current supportive care including Continue steroids DVT and GI prophylaxis nebulizers and oxygen use BiPAP as needed and keep the pulse ox between 88 and 92% (3) Sepsis Resolved A41.9 - SEPSIS, UNSPECIFIED ORGANISM sepsis due to unspecified organism A41.9 - Sepsis, unspecified organism Comment/Plan: Continue the current supportive care including antibiotics and nebulizers patient's sepsis seems to be improving (4) Afib Chronic I48.91 - UNSPECIFIED ATRIAL FIBRILLATION chronic I48.2 - Chronic atrial fibrillation Comment/Plan: Stable at this time (5) Nodule of left lung Chronic R91.1 - SOLITARY PULMONARY NODULE Comment/Plan: Patient would need a PET scan once he gets discharged of the hospital
[2016-10-02] MEDS: FLUTICASONE/SALMETEROL 500/50 DISKUS INH SCH ×2 (08:18→19:45)
[2016-10-02] MEDS: GUAIFENESIN 600 MG LA TAB PO SCH ×2 (08:58→20:40)
[2016-10-02] MEDS: DRONEDARONE 400 MG TAB PO SCH ×2 (08:59→20:40)
[2016-10-02] MEDS: DILTIAZEM HCL 120 MG CAPSULE.CR PO SCH (08:59)
[2016-10-02] MEDS: POTASSIUM CHLORIDE 20 MEQ TAB PO SCH (08:59)
[2016-10-02] MEDS: FUROSEMIDE 40 MG/4 ML VIAL IV SCH ×2 (08:59→16:41)
--- NOTE | 2016-10-02 09:05 | DIRPT ---
CLINICAL DATA: Respiratory failure. Pneumonia. History CHF. EXAM: CT CHEST WITHOUT CONTRAST TECHNIQUE: Multidetector CT imaging of the chest was performed following the standard protocol without IV contrast. COMPARISON: Plain film of [address] of 04/30/2015. FINDINGS: Mediastinum/Nodes: Aortic and branch vessel atherosclerosis. Mild cardiomegaly with lipomatous hypertrophy of the interatrial septum. Multivessel coronary artery atherosclerosis. Borderline enlarged right paratracheal node measures 10 mm today on image 11/series 3. 7 mm on the prior. Hilar regions poorly evaluated without intravenous contrast. Lungs/Pleura: Bilateral pleural thickening. Advanced centrilobular emphysema. Anterior right middle lobe nodularity, including at 6 mm on image 34/series 4. New. Spiculated left upper lobe pulmonary nodule measures 2.0 x 1.7 cm on image 13/series 4. The 7 mm left lower lobe pulmonary nodule described on the prior exam is no longer identified. Bilateral lower lobe predominant peribronchovascular airspace and interstitial opacities. Concurrent fluid or debris within the lower lobe bronchi. More mild posterior left upper lobe opacities. Upper abdomen: Well-circumscribed right hepatic lobe low-density lesion is likely a cyst. Normal imaged portions of the spleen, stomach, pancreas, gallbladder, adrenal glands, kidneys abdominal aortic atherosclerosis. Musculoskeletal: No acute osseous abnormality. IMPRESSION: 1. Centrilobular emphysema with lower lobe predominant interstitial and airspace opacities, likely related to infection or aspiration. 2. Spiculated left upper lobe pulmonary nodule, highly suspicious for primary bronchogenic carcinoma. Consider thoracic surgery consultation for eventual PET. The PET should be withheld until the patient is over the acute infectious process. 3. An anterior right middle lobe pulmonary nodule could relate to the infectious process or also be neoplastic. Recommend attention on follow-up. 4. Borderline right paratracheal adenopathy, indeterminate. 5. Atherosclerosis, including within the coronary arteries. These results will be called to the ordering clinician or used equipment sales representative by the Radiologist Nurse Liaison, and communication documented in the PACS or [employer] Dashboard. Electronically Signed By: Flakito Rivera M.D. On: 10/02/2016 09:03
[2016-10-02] MEDS: NS 1,000 ML IV SCH ×2 (09:19→09:24)
[2016-10-02] MEDS: CHOLECALCIFEROL 1000 UNITS TAB PO SCH (11:47)
--- NOTE | 2016-10-02 13:54 | GENMEDPROG ---
Chief Complaint: resp failure, COPD exac, pneumonia, pulmonary nodule, CHF, cardiomypathy Subjective Note: Patient looks better, but states he feels no better. at bedside today. Currently: Reports: Cough, SOB, Sputum, Tobacco Use/Hx, Emely PT/OT, Ambulating DVT Prophylaxis: Yes - Physical Examination Vital Signs and I&O: Last Vital Signs Temp 97.9 F 10/02/16 04:10 Pulse 82 10/02/16 11:45 Resp 18 10/02/16 11:00 BP 133/62 10/02/16 11:00 Pulse Ox 96 10/02/16 11:00 Oxygen Pulse Oxygen Saturation 96 O2 Device Nasal Cannula Oxygen Flow Rate 4 Fraction of Inspired Oxygen ( 30 FIO2) Intake & Output 09/29/16 09/30/16 10/01/16 10/02/16 23:59 23:59 23:59 23:59 Intake Total 2157 1673 1206 200 Output Total 1600 1275 950 400 Balance 557 398 256 -200 Patient's weight 71.696 kg 72.121 kg 71.169 kg 71.758 kg General: Alert, Oriented x3, Cooperative, Mild distress, Weakness, Fatigue HEENT: Normal, PERRLA, EOMI, Anicteric Sclera Neck: Non-tender, Normal Trachea alignment, Limited range of motion, JVD Lymphatics: Normal (no adenopathy) Respiratory: Diminished, Rales, Wheezes Cardiovascular: Regular rate, Normal S1, Normal S2, Murmurs, Irregular GI: Normal bowel sounds, Soft, Non tender, No hepatospenomegaly, No masses Extremities/Musculoskeletal: Edema, Cyanosis, DJD Skin: Warm,Dry and Intact, No rashes, No breakdown, No significant lesion Neurological: Normal speech, Cranial nerves 3-12 NL Psych/Mental Status: Anxious Lab/DI/Studies Reviewed: CT CHEST: IMPRESSION: 1. Centrilobular emphysema with lower lobe predominant interstitial and airspace opacities, likely related to infection or aspiration. 2. Spiculated left upper lobe pulmonary nodule, highly suspicious for primary bronchogenic carcinoma. Consider thoracic surgery consultation for eventual PET. The PET should be withheld until the patient is over the acute infectious process. 3. An anterior right middle lobe pulmonary nodule could relate to the infectious process or also be neoplastic. Recommend attention on follow-up. 4. Borderline right paratracheal adenopathy, indeterminate. 5. Atherosclerosis, including within the coronary arteries. These results will be called to the ordering clinician or teleservices representative by the Radiologist Bakery Assistant, and communication documented in the PACS or [employer] Dashboard. Electronically Signed By: Flakito Rivera M.D. On: 10/02/2016 09:03 - Assessment (1) Sepsis Resolved A41.9 - SEPSIS, UNSPECIFIED ORGANISM Qualifiers: Sepsis type: sepsis due to unspecified organism Qualified Code(s): A41.9 - Sepsis, unspecified organism Comment/Plan: Continue IV antibiotics and IV steroids monitor cultures. CURRENTLY on Zyvox, Rocephin and Levaquin. Hemodynamically stable. Blood cultures negative unable to produce sputum culture. (2) Acute respiratory failure with hypoxia Acute J96.01 - ACUTE RESPIRATORY FAILURE WITH HYPOXIA Comment/Plan: Very slow clinical improvement on maximal pulmonary therapy. Continue O2 nebs pulmonary toilet continue BiPAP HS. Chest x-ray from today showed improvement in aeration, COPD/bronchitic changes (3) Lung mass Acute R91.8 - OTHER NONSPECIFIC ABNORMAL FINDING OF LUNG FIELD Comment/Plan : CT of chest shows spiculated nodule in AFSHAN and persistent infiltrate in LLL. Mass is suspicious for bronchogenic carcinoma. Needs PET scan after treatment for current infection completed. (per radiology recommendation- will have patient follow-up with Dr. Monroy) (4) Bacterial pneumonia Acute J15.9 - UNSPECIFIED BACTERIAL PNEUMONIA Comment/Plan: Persistent LLL infiltrate. Continue continue broad-spectrum antibiotics in the form of Levaquin, Rocephin, and Zyvox. Continue aggressive pulmonary toileting and mucolytics (5) COPD exacerbation Acute J44.1 - CHRONIC OBSTRUCTIVE PULMONARY DISEASE W (ACUTE) EXACERBATION Comment/Plan: Continue nebulized bronchodilators and IV steroids. Continue mucolytics and aggressive pulmonary toileting. Wean off IV steroids gradually (6) Physical debility Acute R53.81 - OTHER MALAISE Comment/Plan: Increase activity. Out of bed to chair. PTOT to see. (7) Afib Chronic I48.91 - UNSPECIFIED ATRIAL FIBRILLATION Qualifiers: Atrial fibrillation type: chronic Qualified Code(s): I48.2 - Chronic atrial fibrillation Comment/Plan: Rate controlled on Cardizem and Multaq. Continue anticoagulation. Keep K more than 4 magnesium more than 2 (8) Systolic congestive heart failure Chronic I50.20 - UNSPECIFIED SYSTOLIC (CONGESTIVE) HEART FAILURE Qualifiers: Congestive heart failure chronicity: chronic Qualified Code(s): I50.22 - Chronic systolic (congestive) heart failure Comment/Plan: Echocardiogram April of last year showed ejection fraction between 35-40% and patient getting intravenous Lasix daily. BNP is still mildly elevated. (9) Cardiomyopathy Acute I42.9 - CARDIOMYOPATHY, UNSPECIFIED Qualifiers: Cardiomyopathy type: unspecified Qualified Code(s): I42.9 - Cardiomyopathy , unspecified Comment/Plan: Continue salt restriction, monitor weight and fluid balance. Continue IV Lasix. Seems compensated
[2016-10-02] MEDS: CEFTRIAXONE 1 GM in D5W 100 ML IV SCH (16:41)
[2016-10-02] MEDS: RIVAROXABAN 10 MG TAB PO SCH (16:41)
[2016-10-02] MEDS: Levofloxacin 750 mg/150 ml D5W 750 MG/150 ML RTU IV SCH (20:39)
[2016-10-02] MEDS: PEG-ELECTROLYTE 17 GM PACK PO SCH (20:40)
[2016-10-02] MEDS: SENNA CONCENTRATE TAB PO SCH (20:41)
[2016-10-02] MEDS: MONTELUKAST SODIUM 10 MG TAB PO SCH (20:41)
[2016-10-02] MEDS: LORAZEPAM 2 MG/ML VIAL IV PRN (23:31)
[2016-10-03] MEDS: Albuterol/Ipratropium Neb 3 ML NEB NEB SCH ×3 (02:18→13:46)
[2016-10-03] MEDS: METHYLPREDNISOLONE 40 MG/1 ML VIAL IV SCH ×2 (04:29→12:12)
[2016-10-03 04:34] LABS: ALLEN'S TEST PASS; BEb 13.4 (+/- 2); TCO2 40.5 MMOL/L (23-27)
[2016-10-03 04:35] LABS: ABG Draw Site Right Radial
[2016-10-03 05:24] LABS: MPV 7.5 fL (7.4-10.4)
[2016-10-03 05:41] LABS: BLOOD UREA NITROGEN 36 MG/DL (9-20); CALCIUM 9.1 MG/DL (8.4-10.2); CALCULATED OSMOLALITY 280 MOs/Kg (270-290); CHLORIDE 90 mEq/L (98-107); GLUCOSE 239 mg/dL (70-99); SODIUM LEVEL 137 mEq/L (137-146)
[2016-10-03] MEDS: REGULAR INSULIN 100 UNITS/ML - 3 ML VIAL SQ SCH ×2 (05:44→12:07)
[2016-10-03] MEDS: PANTOPRAZOLE 40 MG TAB PO SCH (05:45)
[2016-10-03] MEDS: LORAZEPAM 2 MG/ML VIAL IV PRN (05:45)
[2016-10-03] MEDS ORDERED: FLUTICASONE/SALMETEROL 500/50 DISKUS INH SCH (08:00)
[2016-10-03] MEDS: FUROSEMIDE 40 MG/4 ML VIAL IV SCH (08:24)
[2016-10-03] MEDS: POTASSIUM CHLORIDE 20 MEQ TAB PO SCH (08:25)
[2016-10-03] MEDS: DILTIAZEM HCL 120 MG CAPSULE.CR PO SCH (08:25)
[2016-10-03] MEDS: GUAIFENESIN 600 MG LA TAB PO SCH (08:26)
[2016-10-03] MEDS: DRONEDARONE 400 MG TAB PO SCH (08:29)
[2016-10-03] MEDS: FLUTICASONE/SALMETEROL 500/50 DISKUS INH SCH (09:31)
--- NOTE | 2016-10-03 10:45 | PCM.DCS92 ---
- Final/Secondary Discharge Diagnosis (1) Sepsis Resolved A41.9 - SEPSIS, UNSPECIFIED ORGANISM Present on Admission: Yes sepsis due to unspecified organism A41.9 - Sepsis, unspecified organism Comment: Continue IV antibiotics and IV steroids monitor cultures. Discharge on PO Levaquin. Hemodynamically stable. Blood cultures negative, unable to produce sputum culture. (2) Acute respiratory failure with hypoxia Acute J96.01 - ACUTE RESPIRATORY FAILURE WITH HYPOXIA Present on Admission: Yes Comment: Very slow clinical improvement on maximal pulmonary therapy. Continue O2 nebs pulmonary toilet continue BiPAP HS. Chest x-ray from today showed improvement in aeration, COPD/bronchitic changes (3) Lung mass Acute R91.8 - OTHER NONSPECIFIC ABNORMAL FINDING OF LUNG FIELD Comment: CT of chest shows spiculated nodule in AFSHAN and persistent infiltrate in LLL. Mass is suspicious for bronchogenic carcinoma. Needs PET scan after treatment for current infection completed. (per radiology recommendation- will have patient follow-up with Dr. Monroy) (4) Bacterial pneumonia Acute J15.9 - UNSPECIFIED BACTERIAL PNEUMONIA Present on Admission: Yes Comment: Persistent LLL infiltrate. Continue continue broad-spectrum antibiotics in the form of Levaquin. Continue aggressive pulmonary toileting and mucolytics (5) COPD exacerbation Acute J44.1 - CHRONIC OBSTRUCTIVE PULMONARY DISEASE W (ACUTE) EXACERBATION Present on Admission: Yes Comment: Continue nebulized bronchodilators and IV steroids. Continue mucolytics and aggressive pulmonary toileting. Wean off IV steroids gradually (6) Physical debility Acute R53.81 - OTHER MALAISE Present on Admission: Yes Comment: Increase activity. Out of bed to chair. PTOT to see. (7) Afib Chronic I48.91 - UNSPECIFIED ATRIAL FIBRILLATION Present on Admission: Yes chronic I48.2 - Chronic atrial fibrillation Comment: Rate controlled on Cardizem and Multaq. Continue anticoagulation. Keep K more than 4 magnesium more than 2 (8) Systolic congestive heart failure Chronic I50.20 - UNSPECIFIED SYSTOLIC (CONGESTIVE) HEART FAILURE chronic I50.22 - Chronic systolic (congestive) heart failure Comment: Echocardiogram April of last year showed ejection fraction between 35- 40% and patient getting intravenous Lasix daily. BNP is still mildly elevated. (9) Cardiomyopathy Acute I42.9 - CARDIOMYOPATHY, UNSPECIFIED Present on Admission: Yes unspecified I42.9 - Cardiomyopathy, unspecified Comment: Continue salt restriction, monitor weight and fluid balance. Continue IV Lasix. Seems compensated Discharge Disposition: Longterm Facility Discharge Condition: Improved Cognitive Discharge Status: Unimpaired Fuctional Discharge Status: Walker Assistance, Fall Risk, Deconditioning, Ambulatory Dysfunction, Dyspnea with ambulation Physician Follow up/Referrals: Varun Archuleta MD [Primary Care Provider] - F/U Facility Physician Home Medications / New Prescriptions: New PEG-Electrolytes (Miralax) [Miralax] 17 gm PO HS #30 pack Levofloxacin [Levaquin] 750 mg PO DAILY #5 tab Continue Montelukast Sodium [Singulair] 10 mg PO HS Tiotropium [Spiriva Handihaler] 1 puff INH DAILY Fluticasone/Salmeterol [Advair 500-50 Diskus] 1 puff INH DAILY Nebulizer [Erapid Nebulizer] 1 each UN Rivaroxaban [Xarelto] 20 mg PO .QPM Albuterol Sulfate [Proair Hfa] 2 puff INH QID PRN PRN Reason: Shortness Of Breath Diltiazem HCl [Cardizem Cd] 120 mg PO DAILY #30 cap Dronedarone Hydrochloride [Multaq] 400 mg PO BID Docusate Sodium [Stool Softener] 100 mg PO DAILY PRN PRN Reason: Constipation Cholecalciferol (Vitamin D3) [Vitamin D3] 1,000 unit PO DAILY Alprazolam [Xanax] 0.5 mg PO TID PRN PRN Reason: Anxiety Omeprazole [Prilosec] 20 mg PO BID Albuterol/Ipratropium Neb [Duoneb] 3 ml NEB Q6H #120 nebu Furosemide [Lasix] 40 mg PO BID #120 tab Guaifenesin [Mucinex] 600 mg PO BID #60 tab Potassium Chloride 20 meq PO DAILY #60 tablet.er Changed Prednisone [Deltasone, Orasone] 20 mg PO DAILY #30 tablet Discharge Home Medication List Fluticasone/Salmeterol [Advair 500-50 Diskus] 1 puff INH DAILY 11/22/14 [ History Confirmed 09/24/16 Last Taken 09/24/16] Montelukast Sodium [Singulair] 10 mg PO HS 11/22/14 [History Confirmed 09/24/16 Last Taken 09/23/16] Nebulizer [Erapid Nebulizer] 1 each UNK 11/22/14 [History Confirmed 09/24/16 Last Taken 09/24/16] Tiotropium [Spiriva Handihaler] 1 puff INH DAILY 11/22/14 [History Confirmed Last Taken 09/24/16] Albuterol Sulfate [Proair Hfa] 2 puff INH QID PRN 06/19/15 [History Confirmed Last Taken 09/24/16] Rivaroxaban [Xarelto] 20 mg PO .QPM 06/19/15 [History Confirmed 09/24/16 Last Taken 09/23/16] Diltiazem HCl [Cardizem Cd] 120 mg PO DAILY #30 cap 06/21/15 [Rx Confirmed 09/24 Last Taken 09/24/16] Alprazolam [Xanax] 0.5 mg PO TID PRN 12/27/15 [History Confirmed 09/24/16 Last Taken 01/04/16 08:53] Cholecalciferol (Vitamin D3) [Vitamin D3] 1,000 unit PO DAILY 12/27/15 [History Confirmed 09/24/16 Last Taken 09/24/16] Docusate Sodium [Stool Softener] 100 mg PO DAILY PRN 12/27/15 [History Confirmed 09/24/16 Last Taken 12/26/15] Dronedarone Hydrochloride [Multaq] 400 mg PO BID 12/27/15 [History Confirmed Last Taken 09/24/16] Omeprazole [Prilosec] 20 mg PO BID 12/27/15 [History Confirmed 09/24/16 Last Taken 09/24/16] Albuterol/Ipratropium Neb [Duoneb] 3 ml NEB Q6H #120 nebu 01/04/16 [Rx Confirmed 09/24/16 Last Taken 09/24/16] Furosemide [Lasix] 40 mg PO BID #120 tab 01/04/16 [Rx Confirmed 09/24/16 Last Taken 09/24/16] Guaifenesin [Mucinex] 600 mg PO BID #60 tab 01/04/16 [Rx Confirmed 09/24/16 Last Taken 09/24/16] Potassium Chloride 20 meq PO DAILY #60 tablet.er 01/04/16 [Rx Confirmed Last Taken 09/24/16] Linezolid [Zyvox] 600 mg PO BID #6 tablet 10/03/16 [Rx Last Taken Unknown] PEG-Electrolytes (Miralax) [Miralax] 17 gm PO HS #30 pack 10/03/16 [Rx Last Taken Unknown] Prednisone [Deltasone, Orasone] 20 mg PO DAILY #30 tablet 10/03/16 [Rx Last Taken Unknown] O2 Device: Nasal Cannula (CPAP machine at night) Oxygen Flow Rate: 2 Oxygen to be used after Discharge: Continuous Diet at Discharge: Heart Healthy, Low Salt Activity: As Tolerated Call Office For: Worsening Symptoms, Fever over 101 F, Pain Uncontrolled By Meds Discontinue use of:: Alcohol, All Types of Tobacco - DC Summary Notes Hospital Course Note:: Discharge summary on patient named JAY WRIGHT admitted to [facility] on 09/24/16 by Ulises Okeefe MD. Date of discharge is []. 75 yowm presented to emergency room early on today for evaluation of worsening difficulties breathing. reports that about 10 days ago patient developed chest congestion and cough productive of foamy sputum. Over the ensuing period of time patient breathing has progressively worsened. Patient been coughing producing fair amount of thick yellowish greenish sputum. No hemoptysis. Patient reports chest tightness and profuse wheezing. Despite increasing his oxygen to 4 L and using his nebulizers with increased frequency patient did not sustain any symptomatic improvement. Over past couple days his p.o. intake has been negligent, he has been feel weak tired and very fatigued. Since yesterday his dyspnea has significantly worsened and early on today has found him gasping for air, cold clammy cyanotic and 911 was activated. Upon arrival in ED patient was found to be in severe respiratory distress hypoxic tachypneic and tachycardic. He required immediate ED staff attention, treatment with BiPAP was instituted, intubation was avoided. Medical consultation was phoned in for inpatient treatment. The patient was admitted with sepsis, was treated with a full 10 day course of IV Rocephin, Levaquin and Zyvox. He has chronic renal failure, so we were attempting not to exacerbate his renal failure. He was given IV fluids, treated with BiPAP for respiratory support, and was able to slowly improve. He remains severely debilitated. He has chronic atrial fibrillation, but his rate is controlled on Cardizem and Multaq. Continue anticoagulation with Xarelto. Keep K more than 4, magnesium more than 2. CT of chest shows spiculated nodule in AFSHAN and persistent infiltrate in LLL. Mass is suspicious for bronchogenic carcinoma. Needs PET scan after treatment for current infection completed. ( per radiology recommendation- will have patient follow-up with Dr. Monroy). We will give him another 3 days of PO Zyvox and then have him follow up with Dr. Monroy as an outpatient in 1 week. He will taper his prednisone down to 20 mg daily, then further as deemed appropriate by Dr. Monroy. He remains very weak and can benefit from rehabilitation in a skilled facility. He will be discharged to [facility] for short term rehab today and follow-up with Dr. Archuleta there. Total Time: 45 min Code: 24900 (>30min.) - Physical Exam Vital Signs: Last Vital Signs Temp 97.8 F 10/03/16 08:00 Pulse 87 10/03/16 10:20 Resp 20 10/03/16 08:00 BP 130/68 10/03/16 08:00 Pulse Ox 98 10/03/16 08:00 Oxygen Pulse Oxygen Saturation 98 O2 Device Nasal Cannula Oxygen Flow Rate 4 Fraction of Inspired Oxygen ( 30 FIO2) Constitutional: No apparent distress, Alert Oriented to: Time, Person, Place - HEENT Head: Normal ( normocephalic) Eye: Normal (PERRL, EOMI, Sclera white) Oropharynx: Normal (Pharynx:Moist without exudate,Gums-no swelling) ENT EAC: Normal TMJ: Normal Nose: No Symptoms Reported (septum midline) - Respiratory/Cardiovascular Respiratory: Normal - CTA, Diminished Cardiovascular: Normal - GI Auscultation: Normal (NABS) Palpation: Normal (Soft,No rebound or guarding, non distended) Tenderness: Non tender Clarke's Sign: Negative Rectal Exam: Deferred - Musculoskeletal Back: Normal (Non-Tender) Extremities: Normal (Normal tone, Pulses 2+ No cyanosis or edema, FROM) - Integumentary Skin: Warm, Dry Lymphatics: Normal (no adenopathy) - Neurologic Memory Impaired: Normal Motor Function: Normal Cranial Nerve: Normal Cerebellar: Normal Mood Description: Normal Thought: Coherent Perception: Normal
[2016-10-03 11:43] VITALS: BP 128/70; TEMP 97.9
[2016-10-03] MEDS: CHOLECALCIFEROL 1000 UNITS TAB PO SCH (12:10)
[2016-10-03] MEDS: Linezolid 600 mg/300 ml Premix 600 MG/300 ML RTU IV SCH (12:20)
--- NOTE | 2016-10-03 13:29 | PCM.PULM ---
Chief Complaint: Patient in bed sleepy. Breathing is very slowly improving. Uses trilogy at night and prn Still has a c/o SOB,CARTWRIGHT,wheeze,cough. Medication list and notes reviewed:yes, Events from last night noted and discussed with Clinical Staff - Physical Examination Vital Signs and I&O: Last Vital Signs Temp 97.9 F 10/03/16 11:42 Pulse 89 10/03/16 12:30 Resp 20 10/03/16 11:42 BP 128/70 10/03/16 11:42 Pulse Ox 98 10/03/16 11:42 Oxygen Pulse Oxygen Saturation 98 O2 Device Nasal Cannula Oxygen Flow Rate 2 Fraction of Inspired Oxygen ( 30 FIO2) Intake & Output 09/30/16 10/01/16 10/02/16 10/03/16 23:59 23:59 23:59 23:59 Intake Total 1673 1206 1906 1171 Output Total 7391 192 6719 300 Balance 398 256 556 871 Patient's weight 72.121 kg 71.169 kg 71.758 kg 71.713 kg General: Alert, Oriented x3, No acute distress, Obese, Weakness, Fatigue Respiratory: Diminished, Rhonchi Cardiovascular: Normal S1, No Gallops,Rubs/Murmurs, Normal S2, Irregular GI: Normal bowel sounds, Soft, Non tender, No hepatospenomegaly, No masses Extremities/Musculoskeletal: Normal pulses, Swelling (improved) Skin: Warm,Dry and Intact, No rashes, No breakdown, No significant lesion Neurological: Normal Steady Gait, Normal speech, Strength at 5/5 X4 ext, Cranial nerves 3-12 NL Psych/Mental Status: Appropriate, Anxious Result Diagrams: 10/03/16 04:05 10/03/16 04:05 Labs (last 24 hours): Laboratory Results - last 24 hr 10/02/16 10/02/16 10/03/16 16:23 23:11 04:05 WBC 10.9 H RBC 3.58 L Hgb 10.9 L Hct 32.4 L MCV 91 MCH 30.4 MCHC 33.5 RDW 14.9 H Plt Count 148 MPV 7.5 Puncture Site pH pCO2 pO2 HCO3 Total CO2 Base Excess FiO2 % Specimen Drawn By Sodium Potassium Chloride Carbon Dioxide Anion Gap BUN Creatinine Estimated GFR (MDRD) Glucose POC Capillary Glucose 261 H 277 H Calculated Osmolality Calcium Magnesium [id number] Pept 10/03/16 10/03/16 10/03/16 04:05 04:25 05:31 WBC RBC Hgb Hct MCV MCH MCHC RDW Plt Count MPV Puncture Site Right radial pH 7.490 H pCO2 51.0 H pO2 118.0 H HCO3 38.9 H Total CO2 40.5 H Base Excess 13.4 H FiO2 % 4 lpm c home cpap Specimen Drawn By Stana Sodium 137 Potassium 4.0 Chloride 90 L Carbon Dioxide 36 H Anion Gap 15 BUN 36 H Creatinine 1.10 Estimated GFR (MDRD) > 60 Glucose 239 H POC Capillary Glucose 217 H Calculated Osmolality 280 Calcium 9.1 Magnesium 2.30 Eac-V-Ragiundijng Pept 3550 H 10/03/16 10:51 WBC RBC Hgb Hct MCV MCH MCHC RDW Plt Count MPV Puncture Site pH pCO2 pO2 HCO3 Total CO2 Base Excess FiO2 % Specimen Drawn By Sodium Potassium Chloride Carbon Dioxide Anion Gap BUN Creatinine Estimated GFR (MDRD) Glucose POC Capillary Glucose 196 H Calculated Osmolality Calcium Magnesium [id number] Pept Lab/DI/Studies Reviewed: EKG: NSR, NO ST or ST wave changes noted Medications Diltiazem HCl (Cardizem Cd) 120 mg PO DAILY SHELBI Stop: 10/09/16 08:59 Last Admin: 09/25/16 08:39 Dose: 120 mg Potassium Chloride (Klor-Con M20) 40 meq PO DAILY SHELBI Stop: 10/09/16 08:59 Last Admin: 09/25/16 08:39 Dose: 40 meq Fluticasone/Salmeterol (Advair 500/50) 1 puff INH BID SHELBI Stop: 10/09/16 08:59 Last Admin: 09/25/16 09:12 Dose: 1 puff Sodium Chloride (Normal Saline) 1,000 mls @ 20 mls/hr IV Q48H SHELBI Stop: 10/08/16 16:59 Last Admin: 09/24/16 18:24 Dose: Not Given Albuterol/Ipratropium (Duoneb) 3 ml NEB RTQ6 SHELBI Stop: 10/08/16 16:59 Last Admin: 09/25/16 09:11 Dose: 3 ml Alprazolam (Xanax) 0.5 mg PO TID PRN PRN Reason: Anxiety Stop: 10/08/16 16:52 Ceftriaxone Sodium 1 gm/ (Dextrose) 100 mls @ 200 mls/hr IV Q24H [facility] Stop: 10/01/16 17:59 Last Admin: 09/24/16 18:24 Dose: 200 mls/hr Guaifenesin (Mucinex) 1,200 mg PO BID [facility] Stop: 10/08/16 20:59 Last Admin: 09/25/16 08:39 Dose: 1,200 mg Insulin Human Regular (Humulin R) 0 units SQ Q6 SHELBI PRN Reason: Protocol Stop: 10/08/16 16:59 Last Admin: 09/25/16 06:40 Dose: Not Given Lorazepam (Ativan) 1 mg IV Q4H PRN PRN Reason: Anxiety/Agitation Stop: 10/08/16 21:42 Last Admin: 09/24/16 22:01 Dose: 1 mg Montelukast Sodium (Singulair) 10 mg PO HS [facility] Stop: 10/08/16 20:59 Last Admin: 09/24/16 22:04 Dose: Not Given Pantoprazole Sodium (Protonix) 40 mg PO 0600 [facility] Stop: 10/08/16 16:59 Last Admin: 09/25/16 06:40 Dose: Not Given Mupirocin (Bactroban) 1 gm IRWIN BID Stop: 09/25/16 09:30 Rivaroxaban (Xarelto) 20 mg PO 1800 [facility] Stop: 10/09/16 17:59 Furosemide (Lasix) 40 mg IV DAILY [facility] Stop: 10/12/16 08:59 Linezolid (Zyvox 600 Mg/300 Ml Premix) 600 mg in 300 mls @ 150 mls/hr IV Q12H SHE[facility] Stop: 09/30/16 11:59 Levofloxacin/Dextrose (Levaquin 750 Mg) 750 mg in 150 mls @ 100 mls/hr IV Q24H [facility] Stop: 10/02/16 19:59 Last Admin: 09/29/16 20:00 Dose: 100 mls/hr - Assessment/Plan (1) Acute respiratory failure with hypoxia Acute J96.01 - ACUTE RESPIRATORY FAILURE WITH HYPOXIA Comment/Plan: Patient has been placed on prednisone and would tapered off slowly along with p.o. 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
[2016-10-03 14:34] VITALS: PULSE 88
[2016-10-03] MEDS: ALPRAZOLAM 0.5 MG TAB PO PRN (15:50)
== END 2016-10-03 15:55 | DRG 871 ==
LOC: ED 14:58 → ICU 16:32 → PCU 09-27 16:23
PROVIDERS: ADMIT Internal Medicine; ATTEND Family Medicine
PROC: 5A09357 Assistance with Respiratory Ventilation, Less than 24 Consecutive Hours, Continuous Positive Airway Pressure (ICD-10-PCS; principal; 2016-09-24)
PROC: 039C3ZZ Drainage of Left Radial Artery, Percutaneous Approach (ICD-10-PCS; 2016-09-24)
DX: A41.9 Sepsis, unspecified organism (principal); J96.01 Acute respiratory failure with hypoxia; J15.9 Unspecified bacterial pneumonia; I48.2 Chronic atrial fibrillation; I50.22 Chronic systolic (congestive) heart failure; I42.9 Cardiomyopathy, unspecified; D64.9 Anemia, unspecified; J44.1 Chronic obstructive pulmonary disease with (acute) exacerbation; J44.0 Chronic obstructive pulmonary disease with (acute) lower respiratory infection; R91.8 Other nonspecific abnormal finding of lung field; R53.81 Other malaise; I12.9 Hypertensive chronic kidney disease with stage 1 through stage 4 chronic kidney disease, or unspecified chronic kidney disease; N18.9 Chronic kidney disease, unspecified; I25.10 Atherosclerotic heart disease of native coronary artery without angina pectoris; I25.2 Old myocardial infarction; I51.9 Heart disease, unspecified; Z87.01 Personal history of pneumonia (recurrent); Z86.711 Personal history of pulmonary embolism; K21.9 Gastro-esophageal reflux disease without esophagitis; N40.0 Benign prostatic hyperplasia without lower urinary tract symptoms; M19.90 Unspecified osteoarthritis, unspecified site; F41.8 Other specified anxiety disorders; Z88.0 Allergy status to penicillin; Z79.899 Other long term (current) drug therapy; Z87.891 Personal history of nicotine dependence
CPT/HCPCS: 36415; 36600; 71010; 71250; 80048; 80053; 81001; 82803; 82962; 83605; 83735; 83880; 84443; 84484; 85007; 85025; 85027; 85610; 85730; 87040; 87086; 87641; 93005; 94640; 94660; 96365; 96372; 96375; 97162; 98960; 99284; G0237; J0696; J1650; J1940; J1956; J2020; J2060; J2270; J2920; J2930; J3370; J3490; J7060; J7070; J7620